=== PATIENT | female | born 1955 | race Caucasian/White ===

== ENCOUNTER 2020-10-20 08:31 | Outpatient (REF) | payer MEDICARE, SELFPAY ==
[2020-10-20 11:30] LABS: Hematocrit 42.7 % (37-47); Hemoglobin 13.4 g/dl (12.0-16.0); Mean Corpuscular HGB Conc 31.4 g/dl (31.0-35.0); Mean Corpuscular Hemoglobin 26.7 pg (27.0-33.0); Mean Corpuscular Volume 85.1 fL (80-98); Mean Platelet Volume 11.4 fL (9.4-12.3); Platelet Count 279 X10*3/uL (160-400); Red Blood Count 5.02 X10*6/uL (4.20-5.50); Red Cell Distribution Width 14.5 % (11.0-16.0)
[2020-10-20 11:52] LABS: Alanine Aminotransferase 20 U/L (0-31); Albumin Level 4.1 g/dL (3.5-5.0); Alkaline Phosphatase 86 U/L (39-117); Anion Gap 13 (12-20); Aspartate Amino Transferase 17 U/L (5-31); Bilirubin Total 0.3 mg/dL (0.0-1.0); Blood Urea Nitrogen 14 mg/dL (9-16); Calcium 9.2 mg/dL (8.4-10.2); Carbon Dioxide 26 mmol/L (22-29); Chloride 107 mmol/L (96-108); Cholesterol 177 mg/dL; Estimated Glomerular Filt Rate > 60; Glucose Fasting 106 mg/dL (60-99); HDL Cholesterol 42 mg/dL; LDL Cholesterol Calculated 102 mg/dl; Potassium 4.5 mmol/L (3.3-5.1); Sodium 141 mmol/L (135-145); Total Protein 6.5 g/dL (6.5-8.0); Triglycerides 166 mg/dL
[2020-10-20 11:55] LABS: Creatinine Urine 175.48 mg/dL; Microalbum/Creatinine Ratio Ur 23.3 ug/mg cr
[2020-10-20 11:55] LABS: TSH reflex Free T4 2.66 uIU/mL (0.32-4.0)
== END 2020-10-20 08:32 | disposition home or self-care (01) ==
LOC: HO.HMGCLDS 08:31
PROVIDERS: PCP Physician Assistant; Visit Provider Physician Assistant
DX: Z13.29 Encounter for screening for other suspected endocrine disorder (principal); Z13.220 Encounter for screening for lipoid disorders; I10 Essential (primary) hypertension
CPT/HCPCS: 36415; 80053; 80061; 82043; 84443; 85027

== ENCOUNTER 2021-06-17 07:57 | Outpatient (REF) | payer MEDICARE, SELFPAY ==
--- NOTE | ~2021-06-17 | MM_ITS ---
EXAMINATION: MM SCREENING DIGITAL BREAST TOMOSYNTHESIS, BILATERAL CLINICAL INFORMATION: Screening. Asymptomatic. The lifetime risk of breast cancer based on the Tyrer-Cuzick Model is 7%. COMPARISON: Mammography: 05/05/2019, 06/22/2017, 03/31/2016 TECHNIQUE: Digital breast tomosynthesis is performed in both the craniocaudal and mediolateral oblique views along with computer-aided detection (CAD). Synthesized 2D images are generated from the tomosynthesis. FINDINGS: There are scattered areas of fibroglandular density (ACR BI-RADS breast composition Category b). There are no significant masses, abnormal calcifications, or other abnormalities. There is a stable smooth nodular asymmetry anterior outer left breast and also posterior central right breast, both similar to prior exams. No developing density or significant changes. MM/MM tomosynthesis screening BI IMPRESSION: No mammographic evidence of malignancy. ASSESSMENT: BI-RADS 2: Benign RECOMMENDATION: Routine annual mammography screening. This patient's information was entered into a reminder system with a target due date for their next mammogram.
== END 2021-06-17 07:58 | disposition home or self-care (01) ==
LOC: HO.MAMMO 07:57
PROVIDERS: PCP Physician Assistant; Visit Provider Physician Assistant
DX: Z12.31 Encounter for screening mammogram for malignant neoplasm of breast (principal)
CPT/HCPCS: 77063; 77067

== ENCOUNTER 2021-11-11 09:06 | Outpatient (REF) | payer MEDICARE, SELFPAY ==
[2021-11-11 11:26] LABS: Estimated Average Glucose 123 mg/dL; Hemoglobin A1c % 5.9 %
[2021-11-11 11:37] LABS: Alanine Aminotransferase 18 U/L (0-31); Albumin Level 4.1 g/dL (3.5-5.0); Alkaline Phosphatase 68 U/L (39-117); Anion Gap 14 (12-20); Aspartate Amino Transferase 16 U/L (5-31); Bilirubin Total 0.5 mg/dL (0.0-1.0); Blood Urea Nitrogen 12 mg/dL (9-16); Calcium 9.1 mg/dL (8.4-10.2); Carbon Dioxide 29 mmol/L (22-29); Chloride 102 mmol/L (96-108); Cholesterol 185 mg/dL; Estimated Glomerular Filt Rate > 60; Glucose Fasting 111 mg/dL (60-99); HDL Cholesterol 41 mg/dL; LDL Cholesterol Calculated 90 mg/dl; Sodium 141 mmol/L (135-145); Total Protein 6.6 g/dL (6.5-8.0); Triglycerides 270 mg/dL
[2021-11-11 11:49] LABS: TSH reflex Free T4 2.28 uIU/mL (0.32-4.0)
[2021-11-11 12:14] LABS: Creatinine Urine 156.11 mg/dL; Microalbum/Creatinine Ratio Ur 44.8 ug/mg cr
== END 2021-11-11 09:07 | disposition home or self-care (01) ==
LOC: HO.HMGCLDS 09:06
PROVIDERS: PCP Physician Assistant; Visit Provider Physician Assistant
DX: Z13.29 Encounter for screening for other suspected endocrine disorder (principal); E66.01 Morbid (severe) obesity due to excess calories; Z68.42 Body mass index [BMI] 45.0-49.9, adult; I10 Essential (primary) hypertension
CPT/HCPCS: 36415; 80053; 80061; 82043; 83036; 84443

== ENCOUNTER → 2021-12-15 10:30 | Outpatient (REF) | payer MEDICARE, SELFPAY | LOC: HO.SL 10:30 | PROVIDERS: PCP Physician Assistant; Visit Provider Physician Assistant | DX: G47.33 Obstructive sleep apnea (adult) (pediatric) (principal) | CPT/HCPCS: 95806 ==

== ENCOUNTER → 2022-01-25 14:01 | Outpatient (BNVA) | payer MEDICARE, SELFPAY | PROVIDERS: PCP Physician Assistant; Visit Provider Internal Medicine | DX: G47.33 Obstructive sleep apnea (adult) (pediatric) (principal); R40.0 Somnolence; E66.01 Morbid (severe) obesity due to excess calories; Z68.41 Body mass index [BMI] 40.0-44.9, adult | CPT/HCPCS: 99202 ==

== ENCOUNTER → 2022-03-16 11:02 | Outpatient (BNVA) | payer MEDICARE, SELFPAY | PROVIDERS: PCP Physician Assistant; Visit Provider Internal Medicine | DX: G47.33 Obstructive sleep apnea (adult) (pediatric) (principal); R40.0 Somnolence; E66.01 Morbid (severe) obesity due to excess calories; Z68.41 Body mass index [BMI] 40.0-44.9, adult; Z99.89 Dependence on other enabling machines and devices | CPT/HCPCS: 99212 ==

== ENCOUNTER 2022-06-23 07:19 | Outpatient (REF) | payer MEDICARE, SELFPAY ==
--- NOTE | ~2022-06-23 | MM_ITS ---
EXAMINATION: MM SCREENING DIGITAL BREAST TOMOSYNTHESIS, BILATERAL CLINICAL INFORMATION: Screening. Asymptomatic. The lifetime risk of breast cancer based on the Tyrer-Cuzick Model is 6%. COMPARISON: Mammography: 06/17/2021, 05/05/2019, 06/22/2017 TECHNIQUE: Digital breast tomosynthesis is performed in both the craniocaudal and mediolateral oblique views along with computer-aided detection (CAD). Synthesized 2D images are generated from the tomosynthesis. FINDINGS: There are scattered areas of fibroglandular density (ACR BI-RADS breast composition Category b). There are no significant masses, abnormal calcifications, or other abnormalities. Parenchymal pattern is similar to prior studies. There is no developing density or architectural abnormality. There is a small stable nodular asymmetry mid upper outer left breast. The axilla and skin contours are unremarkable. No significant changes. MM/MM tomosynthesis screening BI IMPRESSION: No mammographic evidence of malignancy. ASSESSMENT: BI-RADS 2: Benign RECOMMENDATION: Routine annual mammography screening. This patient's information was entered into a reminder system with a target due date for their next mammogram.
== END 2022-06-23 07:20 | disposition home or self-care (01) ==
LOC: HO.MAMMO 07:19
PROVIDERS: PCP Physician Assistant; Visit Provider Physician Assistant
DX: Z12.31 Encounter for screening mammogram for malignant neoplasm of breast (principal)
CPT/HCPCS: 77063; 77067

== ENCOUNTER 2022-07-19 08:10 | Outpatient (REF) | payer MEDICARE, SELFPAY ==
[2022-07-19 11:40] LABS: Hematocrit 43.7 % (37.0-47.0); Hemoglobin 13.7 g/dl (12.0-16.0); Mean Corpuscular HGB Conc 31.4 g/dl (31.0-35.0); Mean Corpuscular Hemoglobin 26.1 pg (27.0-33.0); Mean Corpuscular Volume 83.4 fL (80.0-98.0); Platelet Count 259 X10*3/uL (160-400); Red Blood Count 5.24 X10*6/uL (4.20-5.50); Red Cell Distribution Width 14.7 % (11.0-16.0); White Blood Count 6.6 X10*3/uL (4.8-10.8)
[2022-07-19 11:54] LABS: Estimated Average Glucose 131 mg/dL; Hemoglobin A1c % 6.2 %
[2022-07-19 12:37] LABS: Creatinine Urine 176.05 mg/dL; Microalbum/Creatinine Ratio Ur 6.8 ug/mg cr
[2022-07-19 12:43] LABS: Alanine Aminotransferase 14 U/L (0-31); Albumin Level 3.9 g/dL (3.5-5.0); Alkaline Phosphatase 66 U/L (39-117); Anion Gap 10 (12-20); Aspartate Amino Transferase 15 U/L (5-31); Bilirubin Total 0.5 mg/dL (0.0-1.0); Blood Urea Nitrogen 17 mg/dL (9-16); Calcium 9.2 mg/dL (8.4-10.2); Carbon Dioxide 31 mmol/L (22-29); Chloride 104 mmol/L (96-108); Cholesterol 160 mg/dL; Estimated Glomerular Filt Rate > 60; Glucose Fasting 111 mg/dL (60-99); HDL Cholesterol 37 mg/dL; LDL Cholesterol Calculated 78 mg/dl; Potassium 4.3 mmol/L (3.3-5.1); Sodium 141 mmol/L (135-145); Total Protein 6.5 g/dL (6.5-8.0); Triglycerides 226 mg/dL
== END 2022-07-19 08:11 | disposition home or self-care (01) ==
LOC: HO.HMGCLDS 08:10
PROVIDERS: PCP Physician Assistant; Visit Provider Physician Assistant
DX: I10 Essential (primary) hypertension (principal); R73.01 Impaired fasting glucose; E78.2 Mixed hyperlipidemia
CPT/HCPCS: 36415; 80053; 80061; 82043; 83036; 85027

== ENCOUNTER 2022-07-27 08:30 | Outpatient (REF) | payer MEDICARE, SELFPAY ==
--- NOTE | ~2022-07-27 | XR_ITS ---
EXAMINATION: XR CHEST CLINICAL INFORMATION: Acute upper respiratory tract infection COMPARISON: Acute respiratory tract infection TECHNIQUE: 2 views of the chest were obtained. FINDINGS: The cardiac and mediastinal contours are normal. There may be lower lobe bronchial wall thickening. There is subsegmental atelectasis at the left lung base. The lungs are otherwise clear. No definite pneumonia. No pleural effusion or pneumothorax. Degenerative changes of the spine. XR/XR chest 2V IMPRESSION: Left lower lobe subsegmental atelectasis and question of lower lobe bronchial wall thickening. No definite pneumonia.
== END 2022-07-27 08:31 | disposition home or self-care (01) ==
LOC: HO.HMGCX 08:30
PROVIDERS: PCP Physician Assistant; Visit Provider Physician Assistant
DX: J06.9 Acute upper respiratory infection, unspecified (principal)
CPT/HCPCS: 71046

== ENCOUNTER 2022-08-03 09:10 | Outpatient (REF) | payer MEDICARE, SELFPAY ==
--- NOTE | ~2022-08-03 | XR_ITS ---
EXAMINATION: XR CHEST CLINICAL INFORMATION: Mild persistent asthma. COMPARISON: None available. TECHNIQUE: 2 views of the chest were obtained. FINDINGS: The lungs are well-expanded with platelike atelectasis in the lingula.. The rest of lungs are well-expanded and clear. Heart size and pulmonary vascularity is normal. No gross bony abnormality seen. XR/XR chest 2V IMPRESSION: Platelike atelectasis in the lingula.
== END 2022-08-03 09:11 | disposition home or self-care (01) ==
LOC: HO.HMGCLDS 09:10
PROVIDERS: PCP Physician Assistant; Visit Provider Physician Assistant
DX: J45.30 Mild persistent asthma, uncomplicated (principal)
CPT/HCPCS: 71046

== ENCOUNTER 2022-11-17 06:28 | Outpatient (REF) | payer MEDICARE, SELFPAY ==
[2022-11-17 12:02] LABS: Hematocrit 41.8 % (37.0-47.0); Hemoglobin 13.4 g/dl (12.0-16.0); Mean Corpuscular HGB Conc 32.1 g/dl (31.0-35.0); Mean Corpuscular Hemoglobin 27.4 pg (27.0-33.0); Mean Corpuscular Volume 85.5 fL (80.0-98.0); Platelet Count 300 X10*3/uL (160-400); Red Blood Count 4.89 X10*6/uL (4.20-5.50); Red Cell Distribution Width 14.7 % (11.0-16.0); White Blood Count 9.1 X10*3/uL (4.8-10.8)
[2022-11-17 12:11] LABS: Estimated Average Glucose 120 mg/dL; Hemoglobin A1c % 5.8 % (<6.0)
[2022-11-17 12:21] LABS: Alanine Aminotransferase 17 U/L (0-31); Alkaline Phosphatase 64 U/L (39-117); Anion Gap 13 (12-20); Aspartate Amino Transferase 16 U/L (5-31); Bilirubin Total 0.4 mg/dL (0.0-1.0); Blood Urea Nitrogen 12 mg/dL (9-16); Calcium 9.4 mg/dL (8.4-10.2); Carbon Dioxide 28 mmol/L (22-29); Chloride 105 mmol/L (96-108); Estimated Glomerular Filt Rate > 60; Glucose Fasting 104 mg/dL (60-99); Potassium 3.8 mmol/L (3.3-5.1); Sodium 142 mmol/L (135-145); Total Protein 6.7 g/dL (6.5-8.0)
== END 2022-11-17 06:29 | disposition home or self-care (01) ==
LOC: HO.HMGCLDS 06:28
PROVIDERS: PCP Physician Assistant; Visit Provider Physician Assistant
DX: I10 Essential (primary) hypertension (principal); R73.01 Impaired fasting glucose
CPT/HCPCS: 36415; 80053; 83036; 85027

== ENCOUNTER 2022-11-23 08:10 | Outpatient (AMB) | payer MEDICARE, SELFPAY ==
[2022-11-23 08:34] VITALS: BP 118/68; PULSE 83; O2SAT 98; BMI 43.1
--- NOTE | 2022-11-23 08:34 | A.OFFPC_ITS ---
Vital Signs 11/23/22 08:34 Height 5 ft 4 in Weight 251 lb 4 oz BMI 43.1 BP 118/68 Blood Pressure Location Lt brachial Position Sitting Pulse 83 Pulse Source Pulse Oximeter Pulse Oximetry (%) 98 Oxygen Delivery Method Room Air Intake Visit Reasons: f/u HTN/ Asthma/ HLD [employer] Product Tester: Not Required per policy Accompanied by: Self / Same As Patient Allergies acetaminophen [From Tylox] Allergy (Unknown, Verified 11/23/22 08:43) Rash lactose Allergy (Unknown, Verified 11/23/22 08:43) Stomach Upset oxycodone [From Tylox] Allergy (Unknown, Verified 11/23/22 08:43) Rash Medication List - Last Reconciled 11/23/22 by Gonzalez Cheema PA-C albuterol sulfate 90 mcg/actuation 2 puffs inhalation Q4-6H PRN atorvastatin 10 mg PO DAILY fluticasone propionate 50 mcg/actuation (Flonase Allergy Relief) 1 spray intranasal BID 30 days fluticasone propionate 100 mcg/actuation (Flovent Diskus) 1 inh inhalation Q12H 30 days hydrochlorothiazide 25 mg PO DAILY 90 days metoprolol tartrate 25 mg PO BID montelukast (Singulair) 10 mg PO DAILY 90 days Tobacco use date assessed: 05/14/22 Fall risk assessment: No Falls in past year Last assessed Fall Risk: 11/23/22 Dental Screening Dental Screen Date: 11/23/22 Did you have a dental visit in the last 12 months?: Yes Did you have a dental problem in the last 6 months where you did not have access to dental care?: No Was dental information given to patient?: Patient has dentist HPI f/u HTN/ Asthma/ HLD HPI Details Patient is a 67-year-old female here today for a follow-up visit. ? Patient has a past medical history significant obesity, hypertension, obstr uctive sleep apnea, hyperlipidemia. . : Obesity--> patient does understand her BMI is over 30. Has been able to lose weight since last visit. She does report not being as physically active as she has retired and spring. .. Obstructive sleep apnea: Has been found to have moderate to severe obstructive sleep apnea and was started on CPAP machine, has been unable to tolerate the CPAP mask due to feelings of more shortness of breath due to his use. Has tried new masks though still uncomfortable for her. Now followed by pulmonology. .. Hypertension:? Blood pressure acceptable today in office. Continues on metoprolol and hydrochlorothiazide. .. Impaired Glucose metabolism: Patient's most recent fasting blood sugar much improved and A1c also has improved. PLAN: We did discuss starting metformin though patient would like to hold off on continue working on lifestyle modifications [facility] Medical History Shortness of breath Somnolence, daytime Morbid obesity Surgical History History of umbilical hernia repair History of cholecystectomy History of tonsillectomy Family History Father Lung cancer Social History [facility]: [facility] Alcohol intake: never Patient Tobacco Use Status: Never used Tobacco e-Cigarette/Vaping Use: Never Used Second Hand Smoke Exposure: No service: No Current occupational status: retired Cognitive needs: No Hearing needs: No Vision needs: No Questionnaire PHQ-9 Over the last 2 weeks, how often have you been bothered by any of the following problems? 1. Little interest or pleasure in doing things: not at all 2. Feeling down, depressed, or hopeless: not at all 3. Trouble falling or staying asleep, or sleeping too much: not at all 4. Feeling tired or having little energy: not at all 5. Poor appetite or overeating: not at all 6. Feeling bad about yourself - or that you are a failure or have let yourself or your family down: not at all 7. Trouble concentrating on things, such as reading the newspaper or watching television: not at all 8. Moving or speaking so slowly that other people could have noticed. Or the opposite - being so fidgety or restless that you have been moving around a lot more than usual: not at all 9. Thoughts that you would be better off or of hurting yourself in some way: not at all Total score: 0 Depression Screening Interpretation: Negative [id number] - PHQ-9 Billing: Yes Source: Developed by Drs. Smith Bolden, Lita Reagan, Vitaliy Ba and colleagues, with an educational nj from [employer]. Thrive Questionnaire Date Thrive assessed: 07/21/22 AUDIT C Alcohol Use Questionnaire (AUDIT-C) 1. How often do you have a drink containing alcohol?: Never Total Score: 0 ERIC-7 AMB Questionnaire ERIC-7 Date ERIC - 7 assessed: 07/21/22 Source: Developed by Drs. Smith Bolden, Lita Reagan, Vitaliy Ba and colleagues, with an educational nj from [employer]. Review of Systems Const Denies headache(s) Eyes Denies loss of vision ENT Denies vertigo, Denies dizziness, Denies headache(s) and Denies sore throat Card Denies chest pain, Denies leg edema and Denies lightheadedness Resp Denies cough, Denies hemoptysis and Denies wheezing GI Denies abdominal pain, Denies melena, Denies constipation, Denies diarrhea and Denies vomiting Denies urinary frequency, Denies dysuria and Denies urinary urgency Musc Denies arthralgias, Denies joint swelling, Denies numbness and Denies tingling Neuro Denies Abnormal speech present, Denies behavioral changes, Denies vertigo, Denies dizziness, Denies headache(s), Denies loss of vision, Denies memory loss, Denies numbness and Denies tingling Psych Denies anxiety, Denies behavioral changes, Denies depression, Denies memory loss and Denies panic attacks Anatoliy/Lymph Denies easy bleeding and Denies easy bruising Aller/Immun Denies wheezing Physical exam (Primary Care) Vital Signs: Last Vital Signs Pulse 83 11/23/22 08:34 BP 118/68 11/23/22 08:34 Pulse Ox 98 11/23/22 08:34 Oxygen Delivery Method Room Air 11/23/22 08:34 BMI result Body Mass Index 43.1 Tobacco/Smoking Status: Tobacco use Status Tobacco use date assessed 05/14/22 11/23/22 08:41 Patient Tobacco Use Status Never used Tobacco 11/23/22 08:41 Tobacco use type 07/21/22 08:29 e-Cigarette/Vaping Use Never Used 11/23/22 08:41 PHQ-9: PHQ-9 Score PHQ-9: Total score 0 11/23/22 08:41 Depression Screening Interpretation: Negative Thrive Assessment: Date of Thrive Assessment Date Thrive assessed 07/21/22 11/23/22 08:41 Const General: healthy appearing, no acute distress, alert and awake Nutritional Appearance: well nourished Orientation/consciousness: oriented to person, oriented to place and oriented to time HENMT Ears: TM's normal bilaterally General nose exam: Normal nasal mucous membranes and turbinates present Eyes Conjunctivae: conjunctivae normal Sclerae: sclerae normal Pupils: Equal, round and reactive pupils present Neck Neck: Yes no lymphadenopathy and Yes no JVD Thyroid: Thyroid normal Carotids: no bruits Resp Effort & Inspection: normal respiratory effort and not tachypneic Auscultation: no crackles, no rales, no rhonchi and no wheezes Cardio Rate: regular rate Rhythm: regular rhythm Heart sounds: no murmurs and normal S1 and S2 GI Palpation (GI): Soft to palpation, nontender, no hepatomegaly and no splenome silvia Auscultation: normal bowel sounds Skin General skin exam: no rashes or lesions noted and dry skin Neuro General: oriented to person, oriented to place and oriented to time Cranial nerves: Yes Equal, round and reactive pupils present Speech: No Abnormal speech present Gait exam (Neuro): Normal gait present Motor exam (neuro): no tremor noted Extrem Right upper extremity: full ROM Left upper extremity: full ROM Right lower extremity: full ROM; no edema Left lower extremity: full ROM; no edema Psych Mental Status: mental status grossly normal Speech and movement: Normal speech and movement present Affect: normal affect Attitude: cooperative Thought process: Normal thought process present Assessment and Plan Assessment & Plan (1) Asthma: Code(s): J45.909 - Unspecified asthma, uncomplicated Qualifiers: Asthma severity: mild Asthma persistence: persistent Asthma complication type: uncomplicated Qualified Code(s): J45.30 - Mild persistent asthma, uncomplicated Plan: Patient reports her asthma has been much better since she has been off of CPAP machine at night. She believes the CPAP machine was causing her to have pulmonary issues. (2) Obese: Code(s): E66.9 - Obesity, unspecified Qualifiers: Obesity type: due to excess calories Obesity classification: adult class 3 (BMI >= 40) Serious obesity comorbidity presence: with serious comorbidity Body mass index: BMI 45.0-49.9 Qualified Code(s): E66.01 - Morbid (severe) obesity due to excess calories; Z68.42 - Body mass index [BMI] 45.0- 49.9, adult Plan: Patient does understand her BMI is over 40 will continue working on being more physically active and adapting to better eating habits to reduce her weight. (3) HTN (hypertension): Code(s): I10 - Essential (primary) hypertension Qualifiers: Hypertension type: primary hypertension Qualified Code(s): I10 - Essential (primary) hypertension Plan: Patient's blood pressure acceptable today in office. Will continue her current dose of metoprolol and hydrochlorothiazide with goal blood pressure remained below 140/90 (4) Impaired fasting glucose: Code(s): R73.01 - Impaired fasting glucose Plan: Patient's most recent fasting blood sugar improved. A1c still in prediabetic range. Will continue lifestyle modifications to reduce high carbohydrate foods in her diet. (5) URBANO (obstructive sleep apnea): Comment: MODERATELY SEVERE OBSTRUCTIVE SLEEP APNEA, WITH TOTAL SLEEP TIME AHI 18.7. CPAP WITH AUTO PAP MODE AND PRESSURE SETTING OF 6 TO 16 CM . SHE GOT HER CPAP DEVICE IN THE WEEK OF FEBRUARY, USE FOR 1 WEEK REGULARLY, THEN SHE HAD GONE FOR 2 WEEKS VACATION AND DID NOT CARRY THE CPAP WITH HER . NOW SHE PLANS TO USE IT REGULARLY AND SEEMS TO BE WELL MOTIVATED. SHE EXPLAINED ABOUT THE PROPER USE OF CPAP DEVICE. ADVISE THAT SHE SHOULD USE DISTILLED WATER IN THE WATER TANK AND USE THE HUMIDITY AT LEVEL 4,TO REDUCE THE DRYNESS. Code(s): G47.33 - Obstructive sleep apnea (adult) (pediatric) Plan: As per HPI patient does have moderate obstructive sleep apnea. Has not been unable to tolerate CPAP mask or nasal pillow. Like to hold off on obstructive sleep apnea treatment (6) HLD (hyperlipidemia): Code(s): E78.5 - Hyperlipidemia, unspecified Qualifiers: Hyperlipidemia type: mixed hyperlipidemia Qualified Code(s): E78.2 - Mixed hyperlipidemia Plan: Patient continues on statin therapy, most recent lipid panel showing appropriate total cholesterol and LDL. Goal LDL to remain below 160 Orders: Orders Microalbumin, Random (w Creat) 6 Months I10 - Essential (primary) hypertension Comprehensive [place]. Panel Fast 6 Months I10 - Essential (primary) hypertension Lipid Panel 6 Months E78.2 - Mixed hyperlipidemia Complete Blood Count no Diff 6 Months J45.30 - Mild persistent asthma, uncomplicated Coding Level of Care Code Est Pt Level 4 (08562) Diagnoses Mild persistent asthma without complication J45.30 Asthma severity: mild Asthma persistence: persistent Asthma complication type: uncomplicated Class 3 severe obesity due to excess calories with serious comorbidity and body mass index (BMI) of 45.0 to 49.9 in adult E66.01; Z68.42 Obesity type: due to excess calories Obesity classification: adult class 3 (BMI >= 40) Serious obesity comorbidity presence: with serious comorbidity Body mass index: BMI 45.0-49.9 Primary hypertension I10 Hypertension type: primary hypertension Impaired fasting glucose R73.01 URBANO (obstructive sleep apnea) G47.33 Mixed hyperlipidemia E78.2 Hyperlipidemia type: mixed hyperlipidemia
== END 2022-11-23 09:03 | disposition home or self-care (01) ==
PROVIDERS: PCP Physician Assistant; Visit Provider Physician Assistant
DX: J45.30 Mild persistent asthma, uncomplicated (principal); E66.01 Morbid (severe) obesity due to excess calories; Z68.42 Body mass index [BMI] 45.0-49.9, adult; I10 Essential (primary) hypertension; R73.01 Impaired fasting glucose; G47.33 Obstructive sleep apnea (adult) (pediatric); E78.2 Mixed hyperlipidemia
CPT/HCPCS: 99214

== ENCOUNTER 2023-05-16 07:53 | Outpatient (REF) | payer MEDICARE, SELFPAY ==
[2023-05-16 11:26] LABS: Hematocrit 42.6 % (37.0-47.0); Hemoglobin 13.5 g/dl (12.0-16.0); Mean Corpuscular HGB Conc 31.7 g/dl (31.0-35.0); Mean Corpuscular Hemoglobin 26.8 pg (27.0-33.0); Mean Corpuscular Volume 84.7 fL (80.0-98.0); Mean Platelet Volume 11.3 fL (9.4-12.3); Platelet Count 304 X10*3/uL (160-400); Red Blood Count 5.03 X10*6/uL (4.20-5.50); Red Cell Distribution Width 14.6 % (11.0-16.0); White Blood Count 9.5 X10*3/uL (4.8-10.8)
[2023-05-16 12:21] LABS: Alanine Aminotransferase 15 U/L (0-31); Albumin Level 3.9 g/dL (3.5-5.0); Alkaline Phosphatase 70 U/L (39-117); Anion Gap 12 (12-20); Aspartate Amino Transferase 15 U/L (5-31); Bilirubin Total 0.4 mg/dL (0.0-1.0); Blood Urea Nitrogen 14 mg/dL (9-16); Calcium 9.2 mg/dL (8.4-10.2); Carbon Dioxide 30 mmol/L (22-29); Chloride 104 mmol/L (96-108); Cholesterol 183 mg/dL (<200); Estimated Glomerular Filt Rate > 60; Glucose Fasting 103 mg/dL (60-99); HDL Cholesterol 42 mg/dL (>40); LDL Cholesterol Calculated 89 mg/dL (<100); Potassium 3.9 mmol/L (3.3-5.1); Sodium 142 mmol/L (135-145); Total Protein 6.8 g/dL (6.5-8.0); Triglycerides 263 mg/dL (<150)
== END 2023-05-16 07:54 | disposition home or self-care (01) ==
LOC: HO.HMGCLDS 07:53
PROVIDERS: PCP Physician Assistant; Visit Provider Physician Assistant
DX: E78.2 Mixed hyperlipidemia (principal); I10 Essential (primary) hypertension; J45.30 Mild persistent asthma, uncomplicated
CPT/HCPCS: 36415; 80053; 80061; 85027

== ENCOUNTER 2023-05-17 09:05 | Outpatient (REF) | payer MEDICARE, SELFPAY ==
[2023-05-17 12:43] LABS: Creatinine Urine 28.61 mg/dL; Microalbumin Urine < 5.0 mg/L
== END 2023-05-17 09:06 | disposition home or self-care (01) ==
LOC: HO.HMGCLNP 09:05
PROVIDERS: PCP Physician Assistant; Visit Provider Physician Assistant
DX: I10 Essential (primary) hypertension (principal)
CPT/HCPCS: 82043; 82570

== ENCOUNTER 2023-05-24 08:51 | Outpatient (AMB) | payer MEDICARE, SELFPAY ==
--- NOTE | 2023-05-24 09:09 | A.OFFVIS_ITS ---
Intake Vital Signs 05/24/23 09:10 Height 5 ft 4 in Weight 264 lb 2 oz BMI 45.3 BP 152/84 H Blood Pressure Location Lt brachial Position Sitting Pulse 94 Pulse Source Pulse Oximeter Pulse Oximetry (%) 96 Oxygen Delivery Method Room Air Intake Visit Reasons: AWV G0438 Intake Note: Patient is here for an Annual Wellness Visit. Ecd Required: No Accompanied by: Self / Same As Patient Allergies acetaminophen [From Tylox] Allergy (Unknown, Verified 05/24/23 09:23) Rash lactose Allergy (Unknown, Verified 05/24/23 09:23) Stomach Upset oxycodone [From Tylox] Allergy (Unknown, Verified 05/24/23 09:23) Rash Medication List - Last Reconciled 05/24/23 by Gonzalez Cheema PA-C albuterol sulfate 90 mcg/actuation 2 puffs inhalation Q4-6H PRN atorvastatin 10 mg PO DAILY fluticasone propionate 100 mcg/actuation (Flovent Diskus) 1 inh inhalation Q12H 30 days fluticasone propionate 50 mcg/actuation (Flonase Allergy Relief) 1 spray intranasal BID 30 days hydrochlorothiazide 25 mg PO DAILY 90 days metoprolol tartrate 25 mg PO BID montelukast (Singulair) 10 mg PO DAILY 90 days HPI AWV G0438 HPI Details Patient is a 68-year-old female here today for annual wellness visit. Patient has a past medical history significant for obesity, asthma, obstructive sleep apnea,. Glucose metabolism and hypertension. Today we discussed her [place] of care and end of life planning, given a MOLST form to go over with her healthcare proxy. Concern--> has noted a skin lesion over left side of abdomen that is raised and rough texture. Mammogram: Has upcoming appointment for mammogram Bone density screening: Done in 2019 that did show osteopenia, would like a repeat bone density Laboratory Tests 07/19/22 05/16/23 05/16/23 08:20 07:58 07:58 Fasting Glucose 103 H Triglycerides 263 H Cholesterol 160 183 LDL Cholesterol, C alc 89 HPI Comments History of Present Illness Details reviewed past medical history- yes reviewed surgical / hospitalization history- yes reviewed current medications- yes reviewed family history- yes home safety throw rugs? grab bars? raised toilet seat? working smoke detectors? activities of daily living difficulty bathing or showering? difficulty dressing? difficulty using the toilet? difficulty getting in and out of bed? difficulty walking? receives help from other person's with any of the above tasks? instrumental activities of daily living uses telephone - gets to place out of walking distance- go shopping for groceries- repairs own meals- does own minor home maintenance- does own laundry- does own housework- manages own money- currently takes medication- end of life planning discussed advanced directives- yes advanced directives on file? discussed wishes expressed in advanced directives. fall risk have you had any falls with injuries in the past year? have you had 2 or more falls in the past year? fall risk assessment: [facility] Medical History Shortness of breath Somnolence, daytime Morbid obesity Surgical History History of umbilical hernia repair History of cholecystectomy History of tonsillectomy Family History Father Lung cancer Social History Housing: Condominium Alcohol intake: never Patient Tobacco Use Status: Never used Tobacco e-Cigarette/Vaping Use: Never Used Second Hand Smoke Exposure: No service: No Current occupational status: retired Cognitive needs: No Hearing needs: No Vision needs: No Questionnaire Medicare Wellness Checkup [age] What gender do you identify with?: female During the past 4 weeks, how much have you been bothered by emotional problems such as feeling anxious, depressed, irritable, sad or downhearted, and blue?: not at all During the past 4 weeks, has your physical & emotional health limited your social activities with family, friends, neighbors, or groups?: not at all During the past 4 weeks, how much bodily pain have you generally had?: no pain During the past 4 weeks, was someone available to help you if you needed & wanted help?: yes, quite a bit During the past 4 weeks, what was the hardest physical activity you could do for at least 2 minutes?: moderate Can you get to places out of walking distance without help? (For eg., can you travel alone on buses, taxis or drive your car?): Yes Can you go shopping for groceries or clothes without someone's help?: Yes Can you prepare your own meals?: Yes Can you do your housework without help?: Yes Because of any health problems, do you need the help of another person with your personal care needs such as eating, bathing, dressing or getting around the house?: No Can you handle your own money without help?: Yes During the past 4 weeks, how would you rate your health in general?: good During the past 4 weeks how have things been going for you?: pretty well Are you having difficulties driving your car?: no Do you always fasten your seat belt when you are in a car?: yes, usually During past 4 weeks, have you been bothered by the following: never: Falling or dizzy when standing up, Sexual problems?, Trouble eating well? and Problems using the telephone?, sometimes: Teeth or denture problems? and often: Tiredness or fatigue? Have you fallen 2 or more times in the past year?: No Are you afraid of falling?: No Are you a smoker?: no During the past 4 weeks, how many drinks of wine, beer, or other alcoholic beverages did you have?: no alcohol at all Do you exercise for about 20 minutes 3 or more times a week?: no, I usually do not exercise this much Have you been given information to help with the following?: no: Hazards in your house that might hurt you? and no: Keeping track of your medications? How often do you have trouble taking medicines the way you have been told to take them?: I always take medicine as prescribed How confident are you that you can control & manage most of your health problems?: somewhat confident What is your race?: White Mini Mental State Exam (MMSE) Orientation What is the (year) (season) (date) (day) (month)?: year and season Where are we (state) (county) (town or city) (hospital) (floor)?: town or city Attention & Calculation (CHOOSE ONE) Ask pt to begin with 100 & count backward by 7. Stop after 5 repeats. If pt cannot ask them to spell the word WORLD backward.: 93, 86 and 79 Spell WORLD backwards (DLROW): 5 letters Score Score: 11 Activity of Daily Living Bathing - sponge bath, tub bath or shower: receives no assistance (gets in/out by self, if usual bathing means Dressing - getting clothes from closets & drawers, including inner/outer garments & fasteners.: gets clothes & gets completely dressed without help Toileting - going to the 'toilet room' for urine/bowel elimination & cleaning self/arranging clothes: goes to toilet room, cleans self, arranges clothes without help Transfer: moves in & out of bed and chair without help (may use support object) Continence: controls urination/bowel movements completely by self Feeding: feeds self without help Total Score: 0 Information obtained from: patient Using telephone: independent Traveling: independent Shopping: independent Preparing meals: independent Housework: independent Taking medicine: independent Managing money: independent PHQ-9 Over the last 2 weeks, how often have you been bothered by any of the following problems? 1. Little interest or pleasure in doing things: not at all 2. Feeling down, depressed, or hopeless: not at all 3. Trouble falling or staying asleep, or sleeping too much: not at all 4. Feeling tired or having little energy: not at all 5. Poor appetite or overeating: not at all 6. Feeling bad about yourself - or that you are a failure or have let yourself or your family down: not at all 7. Trouble concentrating on things, such as reading the newspaper or watching television: not at all 8. Moving or speaking so slowly that other people could have noticed. Or the opposite - being so fidgety or restless that you have been moving around a lot more than usual: not at all 9. Thoughts that you would be better off or of hurting yourself in some way: not at all Total score: 0 Depression Screening Interpretation: Negative Depression Screening Done: Yes 45670 - PHQ-9 Billing: Yes Source: Developed by Drs. Smith Bolden, Lita Reagan, Vitaliy Ba and colleagues, with an educational nj from [employer]. Thrive Questionnaire Date Thrive assessed: 05/24/23 I am a: Patient What is your living situation today?: I have a steady place to live Within the past 12 months, did the food you bought not last and you didn't have the money to get more?: Never true Within the past 12 months, did you worry whether your food would run out before you got money to buy more?: Never true Do you have trouble paying for medicines?: No Do you have trouble getting transportation to medical appointments?: No Do you have trouble paying your heating and electricity bill?: No Do you have trouble taking care of your child, family member or friend?: No Do you have trouble with day-to-day activities such as bathing, preparing meals, shopping, managing finances, etc.?: No Are you currently unemployed and looking for a job?: No Are you interested in more education?: No Please select the resources that you would like help with: None Currently or been in a relationship where the following occur: no concerns reported THRIVE Score: 0 Physical Exam Vital Signs: Last Vital Signs Pulse 94 05/24/23 09:10 BP 152/84 H 05/24/23 09:10 Pulse Ox 96 05/24/23 09:10 Oxygen Delivery Method Room Air 05/24/23 09:10 BMI result Body Mass Index 45.3 HEENT Other: hearing screening whisper test- pass Eyes Other: vision screening- 20/20 OS/OD/ OU Other: urinary incontinence? no Neuro Other: balance Romberg- normal tandem walk test- able walk-in turned test- able rise from sit to stand- within 2 seconds Assessment & Plan Assessment & Plan (1) Medicare annual wellness visit, initial: Code(s): Z00.00 - Encounter for general adult medical examination without abnormal findings (2) Post-menopausal: Code(s): Z78.0 - Asymptomatic menopausal state Plan: Has a history of osteopenia found on bone density in 2020. Willing to get repeat bone density screening. (3) Skin lesion: Code(s): L98.9 - Disorder of the skin and subcutaneous tissue, unspecified Plan: Has concerning skin lesion over left abdomen, will refer to dermatology for evaluation Plan AWV done today Patient received MOLST form Orders: Orders XR DEXA axial skeleton Today Z78.0 - Asymptomatic menopausal state Hemoglobin A1c Today R73.01 - Impaired fasting glucose Comprehensive [place]. Panel Fast Today R73.01 - Impaired fasting glucose Lipid Panel Today E78.2 - Mixed hyperlipidemia Complete Blood Count no Diff Today I10 - Essential (primary) hypertension Referrals Dermatology Referral L98.9 - Disorder of the skin and subcutaneous tissue, unspecified Medications: Refilled atorvastatin 10 mg PO DAILY 90 tabs 1RF E78.2 - Mixed hyperlipidemia metoprolol tartrate 25 mg PO BID 180 tabs 1RF I10 - Essential (primary) hypertension montelukast (Singulair) 10 mg PO DAILY 90 days 90 tabs 1RF J30.1 - Allergic rhinitis due to pollen fluticasone propionate 50 mcg/actuation (Flonase Allergy Relief) administer into each nostril 1 spray intranasal BID 30 days 16 grams 3RF J30.1 - Allergic rhinitis due to pollen Quality Reporting (2019) Depression/Bipolar (159/160/161/177) PHQ-9: Total score: 0 Coding Level of Care Code Medicare First (G0438) Est Pt Level 3 (67380) Diagnoses Medicare annual wellness visit, initial Z00.00 Post-menopausal Z78.0 Skin lesion L98.9 CPT Codes Advance Care Planning - Time spent: 1-15 minutes, not on file ([id number]) Advance Care Planning Advance Care Planning discussion: Exists, not on file Date of discussion: 05/24/23 Forms completed: MOLST Time spent: 1-15 minutes, not on file Actual minutes spent: 4
[2023-05-24 09:10] VITALS: BP 152/84; PULSE 94; O2SAT 96; BMI 45.3
== END 2023-05-24 09:59 | disposition home or self-care (01) ==
PROVIDERS: PCP Physician Assistant; Visit Provider Physician Assistant
DX: Z00.00 Encounter for general adult medical examination without abnormal findings (principal); Z78.0 Asymptomatic menopausal state; L98.9 Disorder of the skin and subcutaneous tissue, unspecified; E66.01 Morbid (severe) obesity due to excess calories; Z68.42 Body mass index [BMI] 45.0-49.9, adult
CPT/HCPCS: 1124F; 99213; G0438

== ENCOUNTER 2023-06-14 08:06 | Outpatient (REF) | payer MEDICARE, SELFPAY ==
--- NOTE | ~2023-06-14 | MM_ITS ---
EXAMINATION: BONE DENSITOMETRY CLINICAL INDICATION: Menopause. COMPARISON: Baseline BD dated 05/08/2019. TECHNIQUE: Using a [employer] DXA System (software version: 13.1) manufactured by [employer], dual-energy x-ray absorptiometry was performed of the lumbar spine and left hip. The images are of good technical quality. Summary results are attached. FINDINGS: LEFT FEMUR, NECK: Current: BMD 0.821 g/cm2, Z-score -0.6, T-score -1.6, osteopenia. Baseline: BMD 0.855 g/cm2. LEFT FEMUR, TOTAL: Current: BMD 0.995 g/cm2, Z-score 0.5, T-score -0.1, normal, 5.9% increase from baseline (<5% change is not significant). Baseline: BMD 0.940 g/cm2. AP SPINE L1-L4: Current: BMD 1.259 g/cm2, Z-score 1.2, T-score 0.7, normal, 4.6% increase from baseline (<5% change is not significant). Baseline: BMD 1.204 g/cm2. IDENTIFIED RISK FACTORS: Menopause, thiazide. HISTORY OF FRACTURE: None listed. MEDICATIONS: Calcium, vitamin D. MM/XR DEXA axial skeleton IMPRESSION: 1. DIAGNOSIS: Osteopenia based on the lowest T-score value of -1.6 in the femoral neck applying World Health Organization criteria. 2. 10-YEAR FRACTURE RISK PREDICTION, FRAX: Major osteoporotic fracture (clinical spine, forearm, hip or shoulder) 8.6%. Hip fracture 1.2%. 3. Treatment Recommendations: NOF guidelines recommend consideration for treatment in postmenopausal women and men age 50 and older presenting with the following: -A hip or vertebral (clinical or morphometric) fracture. -T-score less than or equal to -2.5 at the femoral neck or spine after appropriate evaluation to exclude secondary causes. -Low bone mass at the hip or spine and a 10-year fracture probability by FRAX of greater than or equal to 3% for hip fracture or greater than or equal to 20% for major osteoporotic fracture based on the [place] adapted WHO algorithm. 4. Other Recommendations: All treatment decisions require clinical judgment and consideration of individual patient factors, including patient preferences, comorbidities, previous drug use, risk factors not captured in the FRAX model (e.g. frailty, falls, vitamin D deficiency, increased bone turnover, interval significant decline in bone density) and possible under or overestimation of fracture risk by FRAX. Additional medical evaluation for secondary cause of low bone mineral density may be appropriate. FUTURE SCAN RECOMMENDATION: People with diagnosed cases of osteoporosis or at high risk for fracture should have regular bone mineral density tests. For patients eligible for Medicare, routine testing is allowed once every 2 years. The testing frequency can be increased to one year for patients who have rapidly progressing disease, those who are receiving or discontinuing medical therapy to restore bone mass, or have additional risk factors.
== END 2023-06-14 08:07 | disposition home or self-care (01) ==
LOC: HO.MAMMO 08:06
PROVIDERS: PCP Physician Assistant; Visit Provider Physician Assistant
DX: Z13.820 Encounter for screening for osteoporosis (principal); Z78.0 Asymptomatic menopausal state
CPT/HCPCS: 77080

== ENCOUNTER 2023-10-12 10:03 | Outpatient (REF) | payer MEDICARE, SELFPAY ==
--- NOTE | ~2023-10-12 | XR_ITS ---
EXAMINATION: XR HIP, RIGHT CLINICAL INFORMATION: Pain in right hip. COMPARISON: None available. TECHNIQUE: 2 views of the right hip. FINDINGS: Diffuse demineralization. Limited visualization due to body habitus. Moderate degenerative changes in the right hip with joint space narrowing and hypertrophic change. Degenerative changes on limited views of the inferior aspect of the right sacroiliac joint. XR/XR hip RT min 2V IMPRESSION: 1. Moderate degenerative changes in the right hip. 2. Diffuse demineralization. Substantially limited visualization due to body habitus. Dedicated imaging with CT scan is recommended if there is clinical concern for fracture or other underlying pathology. This study was presented today October 19, 2023 for interpretation. Stat results provided at this time as requested by referring provider.
== END 2023-10-12 10:04 | disposition home or self-care (01) ==
LOC: HO.HMGCX 10:03
PROVIDERS: PCP Physician Assistant; Visit Provider Physician Assistant
DX: M25.551 Pain in right hip (principal)
CPT/HCPCS: 73502

== ENCOUNTER 2023-11-03 12:10 | Outpatient (AMB) | payer MEDICARE, SELFPAY ==
[2023-11-03 12:20] VITALS: BMI 45.3
--- NOTE | 2023-11-03 12:20 | A.OFFVIS_ITS ---
Vital Signs 11/03/23 12:20 Height 5 ft 4 in Weight 264 lb BMI 45.3 Intake Visit Reasons: New Pt - Right Hip Pain Intake Note: Lorenzo is a 68 year old female who presents today for a new patient visit with complaints of right hip pain. Patient reports that she has had ongoing right hip pain for a few months. Pain is felt in the lateral aspect and the groin. She reports that she took a fall in june but this mostly impacted the right knee, she is unsure if this is why the hip pain onset. She has pain mostly with walking, standing and stairs. Occasionally she will get a sharp pain and feels like the leg is going to give out. Denies of numbness and tingling. Allergies acetaminophen [From Tylox] Allergy (Unknown, Verified 05/24/23 09:23) Rash lactose Allergy (Unknown, Verified 05/24/23 09:23) Stomach Upset oxycodone [From Tylox] Allergy (Unknown, Verified 05/24/23 09:23) Rash HPI HPI New Pt - Right Hip Pain: Details: Lorenzo is a 68 year old female who presents today for a new patient visit with complaints of right hip pain. Patient reports that she has had ongoing right hip pain for a few months. Pain is felt in the lateral aspect and the groin. She reports that she took a fall in june but this mostly impacted the right knee, she is unsure if this is why the hip pain onset. She has pain mostly with walking, standing and stairs. Occasionally she will get a sharp pain and feels like the leg is going to give out. Denies of numbness and tingling. [facility] Medical History Shortness of breath Somnolence, daytime Morbid obesity Surgical History History of umbilical hernia repair History of cholecystectomy History of tonsillectomy Family History Father Lung cancer Social History Housing: Condominium Alcohol intake: never Patient Tobacco Use Status: Never used Tobacco e-Cigarette/Vaping Use: Never Used Second Hand Smoke Exposure: No service: No Current occupational status: retired Cognitive needs: No Hearing needs: No Vision needs: No Physical Exam Vital Signs: BMI result Body Mass Index 45.3 Extrem Other: + Tendelenberg +gait antalgia +Impingement Results Reviewed Results Reviewed: mild-moderate right hip OA Assessment & Plan Assessment & Plan (1) Osteoarthritis of right hip: Code(s): M16.11 - Unilateral primary osteoarthritis, right hip Category: Medical Plan: Right hip OA that is mild-moderate. DIscussed injections, PT and surgery. I recommend PT. (2) Morbid obesity: Code(s): E66.01 - Morbid (severe) obesity due to excess calories Category: Medical Plan: PT Coding Level of Care Code New Pt Level 3 (09076) Complex EM visit Add On G2211 Diagnoses Osteoarthritis of right hip M16.11 Morbid obesity E66.01
== END 2023-11-03 16:47 ==
PROVIDERS: PCP Physician Assistant; Visit Provider Orthopaedic Surgery
DX: M16.11 Unilateral primary osteoarthritis, right hip (principal); E66.01 Morbid (severe) obesity due to excess calories
CPT/HCPCS: 99203; G2211

== ENCOUNTER → 2023-11-03 12:10 | Outpatient (BNVA) | payer MEDICARE, SELFPAY | PROVIDERS: PCP Physician Assistant; Visit Provider Orthopaedic Surgery | DX: M16.11 Unilateral primary osteoarthritis, right hip (principal); E66.01 Morbid (severe) obesity due to excess calories; Z68.42 Body mass index [BMI] 45.0-49.9, adult | CPT/HCPCS: 99202 ==

== ENCOUNTER 2023-11-04 08:08 | Outpatient (REF) | payer MEDICARE, SELFPAY ==
--- NOTE | ~2023-11-04 | MM_ITS ---
EXAMINATION: MM SCREENING DIGITAL BREAST TOMOSYNTHESIS, BILATERAL CLINICAL INFORMATION: Screening. Asymptomatic. COMPARISON: Mammography: This study is compared with prior exams dating back to 2019. TECHNIQUE: Digital breast tomosynthesis is performed in both the craniocaudal and mediolateral oblique views along with computer-aided detection (CAD). Synthesized 2D images are generated from the tomosynthesis. FINDINGS: There are scattered areas of fibroglandular density (ACR BI-RADS breast composition Category b). There are no significant masses, abnormal calcifications, or other abnormalities. MM/MM tomosynthesis screening BI IMPRESSION: No mammographic evidence of malignancy. ASSESSMENT: BI-RADS BI-RADS 1 - Negative RECOMMENDATION: Routine annual mammography screening. 1 year F/U This examination should not preclude the clinical evaluation of a suspicious palpable abnormality. This patient's information was entered into a reminder system with a target due date for their next mammogram. Electronically signed by: Melva Gordon MD 12/01/2023 07:42 PM EDT
== END 2023-11-04 08:09 | disposition home or self-care (01) ==
LOC: HO.MAMMO 08:08
PROVIDERS: PCP Physician Assistant; Visit Provider Physician Assistant
DX: Z12.31 Encounter for screening mammogram for malignant neoplasm of breast (principal)
CPT/HCPCS: 77063; 77067

== ENCOUNTER → 2023-11-04 08:15 | Outpatient (BNV) | payer MEDICARE, SELFPAY | PROVIDERS: PCP Physician Assistant; Visit Provider Radiology Diagnostic Radiology | DX: Z12.31 Encounter for screening mammogram for malignant neoplasm of breast (principal) | CPT/HCPCS: 77063; 77067 ==

== ENCOUNTER 2023-11-15 09:08 | Outpatient (REF) | payer MEDICARE, SELFPAY ==
[2023-11-15 10:13] LABS: Hematocrit 43.5 % (37.0-47.0); Hemoglobin 13.7 g/dl (12.0-16.0); Mean Corpuscular HGB Conc 31.5 g/dl (31.0-35.0); Mean Corpuscular Volume 85.6 fL (80.0-98.0); Mean Platelet Volume 11.5 fL (9.4-12.3); Platelet Count 307 X10*3/uL (160-400); Red Blood Count 5.08 X10*6/uL (4.20-5.50); Red Cell Distribution Width 14.6 % (11.0-16.0); White Blood Count 9.1 X10*3/uL (4.8-10.8)
[2023-11-15 10:30] LABS: Estimated Average Glucose 123 mg/dL; Hemoglobin A1C 152.3804 umol/L; Hemoglobin A1c % 5.9 % (<6.0)
[2023-11-15 10:39] LABS: Alanine Aminotransferase 21 U/L (0-31); Alkaline Phosphatase 73 U/L (39-117); Anion Gap 15 (12-20); Aspartate Amino Transferase 12 U/L (5-31); Bilirubin Total 0.3 mg/dL (0.0-1.0); Blood Urea Nitrogen 14 mg/dL (9-16); Carbon Dioxide 28 mmol/L (22-29); Chloride 105 mmol/L (96-108); Cholesterol 159 mg/dL (<200); Estimated Glomerular Filt Rate > 60; Glucose Fasting 116 mg/dL (60-99); HDL Cholesterol 38 mg/dL (>40); LDL Cholesterol Calculated 72 mg/dL (<100); Potassium 4.5 mmol/L (3.3-5.1); Sodium 143 mmol/L (135-145); Total Protein 6.9 g/dL (6.5-8.0); Triglycerides 248 mg/dL (<150)
== END 2023-11-15 09:09 | disposition home or self-care (01) ==
LOC: HO.HMGCLDS 09:08
PROVIDERS: PCP Physician Assistant; Visit Provider Physician Assistant
DX: R73.01 Impaired fasting glucose (principal); I10 Essential (primary) hypertension; E78.2 Mixed hyperlipidemia
CPT/HCPCS: 36415; 80053; 80061; 83036; 85027

== ENCOUNTER 2023-11-24 08:12 | Outpatient (AMB) | payer MEDICARE, SELFPAY ==
--- NOTE | 2023-11-24 08:15 | A.OFFPC_ITS ---
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 Accompanied by: Self / Same As Patient Allergies acetaminophen [From Tylox] Allergy (Unknown, Verified 11/24/23 08:28) Rash lactose Allergy (Unknown, Verified 11/24/23 08:28) Stomach Upset oxycodone [From Tylox] Allergy (Unknown, Verified 11/24/23 08:28) Rash Medication List - Last Reconciled 11/24/23 by Gonzalez Cheema PA-C albuterol sulfate 90 mcg/actuation 2 puffs inhalation Q4-6H PRN atorvastatin 10 mg PO DAILY fluticasone propionate 100 mcg/actuation (Flovent Diskus) 1 inh inhalation Q12H 30 days fluticasone propionate 50 mcg/actuation (Flonase Allergy Relief) 1 spray intranasal BID 30 days hydrochlorothiazide 25 mg PO DAILY 90 days metoprolol tartrate 25 mg PO BID montelukast (Singulair) 10 mg PO DAILY 90 days triamcinolone acetonide 0.1% 1 appl topical DAILY 30 days Tobacco use date assessed: 11/24/23 Fall risk assessment: 1 Fall in past year Last assessed Fall Risk: 11/24/23 Dental Screening Dental Screen Date: 11/24/23 Did you have a dental visit in the last 12 months?: Yes Did you have a dental problem in the last 6 months where you did not have access to dental care?: No Was dental information given to patient?: Patient has dentist HPI f/u HTN/ HLD HPI Details Patient is a 68-year-old female here today for a follow-up visit. ? Patient has a past medical history significant obesity, hypertension, obstructive sleep apnea, hyperlipidemia. .. Right hip osteoarthritis: Recently got x-ray of right hip that did show moderate arthritis. Has followed up with [place] orthopedic surgeon whom recommend physical therapy. She is not taking any NSAIDs or Tylenol at this time for her pain. She does report being significantly hindered due to her right hip pain as she has not been able to walk far distances and having trouble getting in and out of her car and doing her groceries. .. Obstructive sleep apnea: Has been found to have moderate to severe obstructive sleep apnea and was started on CPAP machine, has been unable to tolerate the CPAP mask due to feelings of more shortness of breath due to his use. Has tried new masks though still uncomfortable for her. Now followed by pulmonology. .. Hypertension:? Blood pressure elevated today in office.. Continues on metoprolol and hydrochlorothiazide. She is in some pain in her right hip which may be elevating her blood pressure. Advised to monitor blood pressure closely at home and if consistently elevated will make adjustments in her blood pressure medication. .. Impaired Glucose metabolism: Patient's most recent fasting blood sugar elevated at 116 and A1c of 5.9. She does understand she has a prediabetic. PLAN: We did discuss starting metformin though patient would like to hold off on continue working on lifestyle modifications. Laboratory Tests 05/17/23 11/15/23 09:05 09:12 RBC 5.08 Fasting Glucose 116 H Hemoglobin A1c % 5.9 Triglycerides 248 H Cholesterol 159 Urine Microalbumin < 5.0 [facility] Medical History Shortness of breath Somnolence, daytime Morbid obesity Surgical History History of umbilical hernia repair History of cholecystectomy History of tonsillectomy Family History Father Lung cancer Social History Housing: Condominium Alcohol intake: never Patient Tobacco Use Status: Never used Tobacco e-Cigarette/Vaping Use: Never Used Second Hand Smoke Exposure: No service: No Current occupational status: retired Cognitive needs: No Hearing needs: No Vision needs: No Questionnaire PHQ-9 Over the last 2 weeks, how often have you been bothered by any of the following problems? 1. Little interest or pleasure in doing things: not at all 2. Feeling down, depressed, or hopeless: not at all 3. Trouble falling or staying asleep, or sleeping too much: not at all 4. Feeling tired or having little energy: not at all 5. Poor appetite or overeating: not at all 6. Feeling bad about yourself - or that you are a failure or have let yourself or your family down: not at all 7. Trouble concentrating on things, such as reading the newspaper or watching television: not at all 8. Moving or speaking so slowly that other people could have noticed. Or the opposite - being so fidgety or restless that you have been moving around a lot more than usual: not at all 9. Thoughts that you would be better off or of hurting yourself in some way: not at all Total score: 0 Depression Screening Interpretation: Negative Depression Screening Done: Yes 32235 - PHQ-9 Billing: Yes Source: Developed by Drs. Smith Bolden, Lita Reagan, Vitaliy Ba and colleagues, with an educational nj from [employer]. Thrive Questionnaire Date Thrive assessed: 11/24/23 I am a: Patient What is your living situation today?: I have a steady place to live Within the past 12 months, did the food you bought not last and you didn't have the money to get more?: Never true Within the past 12 months, did you worry whether your food would run out before you got money to buy more?: Never true Do you have trouble paying for medicines?: No Do you have trouble getting transportation to medical appointments?: No Do you have trouble paying your heating and electricity bill?: No Do you have trouble taking care of your child, family member or friend?: No Do you have trouble with day-to-day activities such as bathing, preparing meals, shopping, managing finances, etc.?: No Are you currently unemployed and looking for a job?: No Are you interested in more education?: No Please select the resources that you would like help with: None Currently or been in a relationship where the following occur: No concerns reported THRIVE Score: 0 AUDIT C Alcohol Use Questionnaire (AUDIT-C) 1. How often do you have a drink containing alcohol?: Never Total Score: 0 ERIC-7 AMB Questionnaire ERIC-7 Date ERIC - 7 assessed: 11/24/23 Feeling nervous, anxious, or on edge: 0 = Not at all Not being able to stop or control worryin = Not at all Worrying too much about different things: 0 = Not at all Trouble relaxin = Not at all Being so restless that it is hard to sit still: 0 = Not at all Becoming easily annoyed or irritable: 0 = Not at all Feeling afraid as if something awful might happen: 0 = Not at all Total ERIC-7 score (0-4 normal; 5-9 mild; 10-14 moderate; 15-21 severe): 0 Source: Developed by Drs. Smith Bolden, Lita Reagan, Vitaliy Ba and colleagues, with an educational nj from [employer]. ERIC-7 Assessment Billing ERIC-7 Assessment Tool: ERIC-7 Assessment 22173 Review of Systems Const Denies headache(s) Eyes Denies loss of vision ENT Denies vertigo, Denies dizziness, Denies headache(s) and Denies sore throat Card Denies chest pain, Denies leg edema and Denies lightheadedness Resp Denies cough, Denies hemoptysis and Denies wheezing GI Denies abdominal pain, Denies melena, Denies constipation, Denies diarrhea and Denies vomiting Denies urinary frequency, Denies dysuria and Denies urinary urgency Musc Denies arthralgias, Denies joint swelling, Denies numbness and Denies tingling Neuro Denies Abnormal speech present, Denies behavioral changes, Denies vertigo, Denies dizziness, Denies headache(s), Denies loss of vision, Denies memory loss, Denies numbness and Denies tingling Psych Denies anxiety, Denies behavioral changes, Denies depression, Denies memory loss and Denies panic attacks Anatoliy/Lymph Denies easy bleeding and Denies easy bruising Aller/Immun Denies wheezing Physical exam (Primary Care) Vital Signs: Last Vital Signs Pulse 93 11/24/23 08:18 BP 162/90 H 11/24/23 08:18 Pulse Ox 96 11/24/23 08:18 Oxygen Delivery Method Room Air 11/24/23 08:18 BMI result Body Mass Index 44.5 Tobacco/Smoking Status: Tobacco use Status Tobacco use date assessed 11/24/23 11/24/23 08:24 Patient Tobacco Use Status Never used Tobacco 11/24/23 08:24 Tobacco use type 07/21/22 08:29 e-Cigarette/Vaping Use Never Used 11/24/23 08:24 PHQ-9: PHQ-9 Score PHQ-9: Total score 0 11/24/23 08:24 Depression Screening Interpretation: Negative Thrive Assessment: Date of Thrive Assessment Date Thrive assessed 11/24/23 11/24/23 08:24 Currently or been in a relationship where the following occur: No concerns reported Const General: healthy appearing, no acute distress, alert and awake Nutritional Appearance: well nourished Orientation/consciousness: oriented to person, oriented to place and oriented to time HENMT Ears: TM's normal bilaterally General nose exam: Normal nasal mucous membranes and turbinates present Eyes Conjunctivae: conjunctivae normal Sclerae: sclerae normal Pupils: Equal, round and reactive pupils present Neck Neck: Yes no lymphadenopathy and Yes no JVD Thyroid: Thyroid normal Carotids: no bruits Resp Effort & Inspection: normal respiratory effort and not tachypneic Auscultation: no crackles, no rales, no rhonchi and no wheezes Cardio Rate: regular rate Rhythm: regular rhythm Heart sounds: no murmurs and normal S1 and S2 GI Palpation (GI): Soft to palpation, nontender, no hepatomegaly and no splenomegaly Auscultation: normal bowel sounds Back/Spine/Pelvis Other: AMBULATING WITH A CANE, DOES APPEAR TO BE AMBULATING WITH AN ANTALGIC GAIT Skin General skin exam: no rashes or lesions noted and dry skin Neuro General: oriented to person, oriented to place and oriented to time Cranial nerves: Yes Equal, round and reactive pupils present Speech: No Abnormal speech present Gait exam (Neuro): Normal gait present Motor exam (neuro): no tremor noted Extrem Right upper extremity: full ROM Left upper extremity: full ROM Right lower extremity: full ROM; no edema Left lower extremity: full ROM; no edema Psych Mental Status: mental status grossly normal Speech and movement: Normal speech and movement present Affect: normal affect Attitude: cooperative Thought process: Normal thought process present Assessment and Plan Assessment & Plan (1) HTN (hypertension): Code(s): I10 - Essential (primary) hypertension Qualifiers: Hypertension type: primary hypertension Qualified Code(s): I10 - Essential (primary) hypertension Plan: Patient's blood pressure elevated today in office, is in some pain due to her hip osteoarthritis. Advised to blood close attention to her blood pressure readings at home and if elevated will consider making Change in her blood pressure medication. Will continue her current dose of metoprolol and h ydrochlorothiazide with goal blood pressure remained below 140/90 (2) Obese: Code(s): E66.9 - Obesity, unspecified Qualifiers: Obesity type: due to excess calories Obesity classification: adult class 3 (BMI >= 40) Serious obesity comorbidity presence: with serious comorbidity Body mass index: BMI 45.0-49.9 Qualified Code(s): E66.01 - Morbid (severe) obesity due to excess calories; Z68.42 - Body mass index [BMI] 45.0- 49.9, adult Plan: Patient does understand her BMI is over 40 will continue working on being more physically active and adapting to better eating habits to reduce her weight. (3) Impaired fasting glucose: Code(s): R73.01 - Impaired fasting glucose Plan: Patient's most recent fasting blood sugar improved. A1c still in prediabetic range. Will continue lifestyle modifications to reduce high carbohydrate foods in her diet. (4) URBANO (obstructive sleep apnea): Comment: MODERATELY SEVERE OBSTRUCTIVE SLEEP APNEA, WITH TOTAL SLEEP TIME AHI 18.7. CPAP WITH AUTO PAP MODE AND PRESSURE SETTING OF 6 TO 16 CM . SHE GOT HER CPAP DEVICE IN THE WEEK OF FEBRUARY, USE FOR 1 WEEK REGULARLY, THEN SHE HAD GONE FOR 2 WEEKS VACATION AND DID NOT CARRY THE CPAP WITH HER . NOW SHE PLANS TO USE IT REGULARLY AND SEEMS TO BE WELL MOTIVATED. SHE EXPLAINED ABOUT THE PROPER USE OF CPAP DEVICE. ADVISE THAT SHE SHOULD USE DISTILLED WATER IN THE WATER TANK AND USE THE HUMIDITY AT LEVEL 4,TO REDUCE THE DRYNESS. Code(s): G47.33 - Obstructive sleep apnea (adult) (pediatric) Plan: As per HPI patient does have moderate obstructive sleep apnea. Has not been unable to tolerate CPAP mask or nasal pillow. Like to hold off on obstructive sleep apnea treatment (5) HLD (hyperlipidemia): Code(s): E78.5 - Hyperlipidemia, unspecified Qualifiers: Hyperlipidemia type: mixed hyperlipidemia Qualified Code(s): E78.2 - Mixed hyperlipidemia Plan: Patient continues on statin therapy, most recent lipid panel showing appropriate total cholesterol and LDL. Goal LDL to remain below 160 (6) Osteoarthritis of right hip: Code(s): M16.11 - Unilateral primary osteoarthritis, right hip Qualifiers: Osteoarthritis type: primary Qualified Code(s): M16.11 - Unilateral primary osteoarthritis, right hip Plan: Patient continues to be hindered by her right hip osteoarthritis. Seen orthopedic who recommended physical therapy per patient continues to be in pretty significant pain while walking and would likely benefit from physical therapy. She would like a 2nd opinion from new orthopedic for discussion on possible injection. Will supply patient with Tylenol and NSAID to use on a p.r.n. basis for pain. Orders: Orders PT Evaluation and Treatment Today M16.11 - Unilateral primary osteoarthritis, right hip Hemoglobin A1c Today R73.01 - Impaired fasting glucose Comprehensive [place]. Panel Fast Today R73.01 - Impaired fasting glucose Lipid Panel Today E78.2 - Mixed hyperlipidemia Complete Blood Count no Diff Today E78.2 - Mixed hyperlipidemia Microalbumin, Random (w Creat) Today I10 - Essential (primary) hypertension Referrals Orthopedics Referral M16.11 - Unilateral primary osteoarthritis, right hip Medications: New ibuprofen 600 mg PO TID 30 days PRN 90 tabs 1RF pain M16.11 - Unilateral primary osteoarthritis, right hip acetaminophen 500 mg PO Q6H 30 days 120 caps 1RF fever M16.11 - Unilateral primary osteoarthritis, right hip Patient Instructions: GOAL: Blood pressure to be below 140/90 Barriers: Adherence to physical activity and healthy eating habits Coding Level of Care Code Est Pt Level 4 (64168) Diagnoses Primary hypertension I10 Hypertension type: primary hypertension Class 3 severe obesity due to excess calories with serious comorbidity and body mass index (BMI) of 45.0 to 49.9 in adult E66.01; Z68.42 Obesity type: due to excess calories Obesity classification: adult class 3 (BMI >= 40) Serious obesity comorbidity presence: with serious comorbidity Body mass index: BMI 45.0-49.9 Impaired fasting glucose R73.01 URBANO (obstructive sleep apnea) G47.33 Mixed hyperlipidemia E78.2 Hyperlipidemia type: mixed hyperlipidemia Primary osteoarthritis of right hip M16.11 Osteoarthritis type: primary Additional Codes ERIC-7 Assessment Billing - ERIC-7 Assessment Tool: ERIC-7 Assessment 73198 ([id number])
[2023-11-24 08:18] VITALS: BP 162/90; PULSE 93; O2SAT 96; BMI 44.5
== END 2023-11-24 09:01 | disposition home or self-care (01) ==
PROVIDERS: PCP Physician Assistant; Visit Provider Physician Assistant
DX: I10 Essential (primary) hypertension (principal); E66.01 Morbid (severe) obesity due to excess calories; Z68.42 Body mass index [BMI] 45.0-49.9, adult; R73.01 Impaired fasting glucose; G47.33 Obstructive sleep apnea (adult) (pediatric); E78.2 Mixed hyperlipidemia; M16.11 Unilateral primary osteoarthritis, right hip
CPT/HCPCS: 99214

== ENCOUNTER 2024-01-30 12:47 | Outpatient (RCR) | payer MEDICARE, SELFPAY | END 2024-02-17 10:25 | disposition home or self-care (01) | LOC: HO.PT 12:47 | PROVIDERS: PCP Physician Assistant; Visit Provider Physician Assistant | DX: M16.11 Unilateral primary osteoarthritis, right hip (principal) | CPT/HCPCS: 97110; 97162 ==

== ENCOUNTER 2024-04-18 08:41 | Outpatient (REF) | payer MEDICARE, SELFPAY ==
[2024-04-18 09:58] LABS: Hematocrit 41.7 % (37.0-47.0); Hemoglobin 13.2 g/dl (12.0-16.0); Mean Corpuscular HGB Conc 31.7 g/dl (31.0-35.0); Mean Corpuscular Hemoglobin 26.7 pg (27.0-33.0); Mean Corpuscular Volume 84.4 fL (80.0-98.0); Mean Platelet Volume 11.3 fL (9.4-12.3); Platelet Count 280 X10*3/uL (160-400); Red Blood Count 4.94 X10*6/uL (4.20-5.50); Red Cell Distribution Width 14.6 % (11.0-16.0); White Blood Count 8.4 X10*3/uL (4.8-10.8)
[2024-04-18 10:16] LABS: Estimated Average Glucose 131 mg/dL; Hemoglobin A1C 152.4222 umol/L; Hemoglobin A1c % 6.2 % (<6.0)
[2024-04-18 10:20] LABS: Alanine Aminotransferase 15 U/L (0-31); Albumin Level 3.8 g/dL (3.5-5.0); Alkaline Phosphatase 63 U/L (39-117); Anion Gap 11 (12-20); Aspartate Amino Transferase 16 U/L (5-31); Bilirubin Total 0.3 mg/dL (0.0-1.0); Blood Urea Nitrogen 10 mg/dL (9-16); Calcium 9.2 mg/dL (8.4-10.2); Carbon Dioxide 29 mmol/L (22-29); Chloride 105 mmol/L (96-108); Cholesterol 161 mg/dL (<200); Estimated Glomerular Filt Rate > 60; Glucose Fasting 110 mg/dL (60-99); HDL Cholesterol 39 mg/dL (>40); LDL Cholesterol Calculated 76 mg/dL (<100); Sodium 141 mmol/L (135-145); Total Protein 6.9 g/dL (6.5-8.0); Triglycerides 231 mg/dL (<150)
[2024-04-18 14:10] LABS: Microalbum/Creatinine Ratio Ur 11.1 ug/mg cr (<30)
== END 2024-04-18 08:42 | disposition home or self-care (01) ==
LOC: HO.HMGCLDS 08:41
PROVIDERS: PCP Physician Assistant; Visit Provider Physician Assistant
DX: R73.01 Impaired fasting glucose (principal); E78.2 Mixed hyperlipidemia; I10 Essential (primary) hypertension
CPT/HCPCS: 36415; 80053; 80061; 82043; 82570; 83036; 85027

== ENCOUNTER 2024-04-24 11:01 | Outpatient (AMB) | payer MEDICARE, SELFPAY ==
[2024-04-24 11:12] VITALS: BP 160/86; PULSE 78; TEMP 36.3; O2SAT 97; BMI 45.7
--- NOTE | 2024-04-24 11:12 | A.OFFPC_ITS ---
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 Accompanied by: Self / Same As Patient Allergies acetaminophen [From Tylox] Allergy (Unknown, Verified 04/24/24 11:19) Rash lactose Allergy (Unknown, Verified 04/24/24 11:19) Stomach Upset oxycodone [From Tylox] Allergy (Unknown, Verified 04/24/24 11:19) Rash Medication List - Last Reconciled 04/24/24 by Gonzalez Cheema PA-C acetaminophen 500 mg PO Q6H 30 days albuterol sulfate 90 mcg/actuation 2 puffs inhalation Q4-6H PRN atorvastatin 10 mg PO DAILY fluticasone propionate 100 mcg/actuation (Flovent Diskus) 1 inh inhalation Q12H 30 days fluticasone propionate 50 mcg/actuation (Flonase Allergy Relief) 1 spray intranasal BID 30 days hydrochlorothiazide 25 mg PO DAILY 90 days ibuprofen 600 mg PO TID PRN 30 days metoprolol tartrate 25 mg PO BID montelukast (Singulair) 10 mg PO DAILY 90 days triamcinolone acetonide 0.1% 1 appl topical DAILY 30 days Tobacco use date assessed: 04/24/24 Fall risk assessment: No Falls in past year Last assessed Fall Risk: 04/24/24 Dental Screening Dental Screen Date: 04/24/24 Did you have a dental visit in the last 12 months?: No Did you have a dental problem in the last 6 months where you did not have access to dental care?: No Was dental information given to patient?: Patient has dentist HPI 4 month F/U HPI Details Patient is a 69 year-old female here today for a follow-up visit. ? Patient has a past medical history significant obesity, hypertension, obstructive sleep apnea, hyperlipidemia. .. Right hip osteoarthritis: Recently got x-ray of right hip that did show moderate arthritis. Has followed up with [place] orthopedic surgeon whom recommend physical therapy. She is not taking any NSAIDs or Tylenol at this time for her pain. She does report being significantly hindered due to her right hip pain as she has not been able to walk far distances and having trouble getting in and out of her car and doing her groceries. .. Obstructive sleep apnea: Has been found to have moderate to severe obstructive sleep apnea and was started on CPAP machine, has been unable to tolerate the CPAP mask due to feelings of more shortness of breath due to his use. Has tried new masks though still uncomfortable for her. Does not follow up with pulmonology any further. .. Hypertension:? Blood pressure elevated today in office. Has unfortunately gained weight since last office visit. Continues on metoprolol and hydrochlorothiazide. She is in some pain in her right hip which may be elevating her blood pressure. Advised to monitor blood pressure closely at home and if consistently elevated will make adjustments in her blood pressure medication. PLAN: Will add on lisinopril for better blood pressure control .. Class 3 obesity: Unfortunately has gained weight since last office visit. She has weight related comorbidities such as hypertension and obstructive sleep apnea, hypertriglyceridemia along with impaired glucose metabolism. .. Impaired Glucose metabolism: Patient's most recent fasting blood sugar elevated and A1c up at 6.2. She does understand she has a prediabetic. PLAN: We did discuss starting metformin though patient would like to hold off on continue working on lifestyle modifications. Laboratory Tests 11/15/23 04/18/24 04/18/24 09:12 08:47 11:45 Fasting Glucose 110 H Hemoglobin A1c % 5.9 6.2 H Triglycerides 248 H 231 H Cholesterol 161 LDL Cholesterol, C alc 76 Urine Microalbumin 10.0 [facility] Medical History Shortness of breath Somnolence, daytime Morbid obesity Surgical History History of umbilical hernia repair History of cholecystectomy History of tonsillectomy Family History Father Lung cancer Social History Housing: Condominium Alcohol intake: never Patient Tobacco Use Status: Never used Tobacco e-Cigarette/Vaping Use: Never Used Second Hand Smoke Exposure: No service: No Current occupational status: retired Cognitive needs: No Hearing needs: No Vision needs: No Questionnaire PHQ-9 Over the last 2 weeks, how often have you been bothered by any of the following problems? 1. Little interest or pleasure in doing things: not at all 2. Feeling down, depressed, or hopeless: not at all 3. Trouble falling or staying asleep, or sleeping too much: not at all 4. Feeling tired or having little energy: not at all 5. Poor appetite or overeating: not at all 6. Feeling bad about yourself - or that you are a failure or have let yourself or your family down: not at all 7. Trouble concentrating on things, such as reading the newspaper or watching television: not at all 8. Moving or speaking so slowly that other people could have noticed. Or the opposite - being so fidgety or restless that you have been moving around a lot more than usual: not at all 9. Thoughts that you would be better off or of hurting yourself in some way: not at all Total score: 0 Depression Screening Interpretation: Negative Depression Screening Done: Yes 18597 - PHQ-9 Billing: Yes Source: Developed by Drs. Smith Bolden, Lita Reagan, Vitaliy Ba and colleagues, with an educational nj from [employer]. Thrive Questionnaire Date Thrive assessed: 04/24/24 I am a: Patient What is your living situation today?: I have a steady place to live Within the past 12 months, did the food you bought not last and you didn't have the money to get more?: Never true Within the past 12 months, did you worry whether your food would run out before you got money to buy more?: Never true Do you have trouble paying for medicines?: No Do you have trouble getting transportation to medical appointments?: No Do you have trouble paying your heating and electricity bill?: No Do you have trouble taking care of your child, family member or friend?: No Do you have trouble with day-to-day activities such as bathing, preparing meals, shopping, managing finances, etc.?: No Are you currently unemployed and looking for a job?: No Are you interested in more education?: No Please select the resources that you would like help with: None Currently or been in a relationship where the following occur: No concerns reported THRIVE Score: 0 AUDIT C Alcohol Use Questionnaire (AUDIT-C) 1. How often do you have a drink containing alcohol?: Never 3. How often do you have six or more drinks on one occasion?: Never Total Score: 0 ERIC-7 AMB Questionnaire ERIC-7 Date ERIC - 7 assessed: 04/24/24 Feeling nervous, anxious, or on edge: 0 = Not at all Not being able to stop or control worryin = Not at all Worrying too much about different things: 0 = Not at all Trouble relaxin = Not at all Being so restless that it is hard to sit still: 0 = Not at all Becoming easily annoyed or irritable: 0 = Not at all Feeling afraid as if something awful might happen: 0 = Not at all Total ERIC-7 score (0-4 normal; 5-9 mild; 10-14 moderate; 15-21 severe): 0 Source: Developed by Drs. Smith Bolden, Lita Reagan, Vitaliy Ba and colleagues, with an educational nj from [employer]. ERIC-7 Assessment Billing ERIC-7 Assessment Tool: ERIC-7 Assessment 16773 Review of Systems Const Denies headache(s) Eyes Denies loss of vision ENT Denies vertigo, Denies dizziness, Denies headache(s) and Denies sore throat Card Denies chest pain, Denies leg edema and Denies lightheadedness Resp Denies cough, Denies hemoptysis and Denies wheezing GI Denies abdominal pain, Denies melena, Denies constipation, Denies diarrhea and Denies vomiting Denies urinary frequency, Denies dysuria and Denies urinary urgency Musc Denies arthralgias, Denies joint swelling, Denies numbness and Denies tingling Neuro Denies Abnormal speech present, Denies behavioral changes, Denies vertigo, Denies dizziness, Denies headache(s), Denies loss of vision, Denies memory loss, Denies numbness and Denies tingling Psych Denies anxiety, Denies behavioral changes, Denies depression, Denies memory loss and Denies panic attacks Anatoliy/Lymph Denies easy bleeding and Denies easy bruising Aller/Immun Denies wheezing Physical exam (Primary Care) Vital Signs: Last Vital Signs Temp 97.3 F 04/24/24 11:12 Pulse 78 04/24/24 11:12 BP 155/78 H 04/24/24 11:37 Pulse Ox 97 04/24/24 11:12 Oxygen Delivery Method Room Air 04/24/24 11:12 BMI result Body Mass Index 45.7 BMI Assessment/Plan discussion: High BMI High, discussed plan: lifestyle, weight reduction, dietary and physical activity Tobacco/Smoking Status: Tobacco use Status Tobacco use date assessed 04/24/24 04/24/24 11:18 Patient Tobacco Use Status Never used Tobacco 04/24/24 11:18 Tobacco use type 07/21/22 08:29 e-Cigarette/Vaping Use Never Used 04/24/24 11:18 PHQ-9: PHQ-9 Score PHQ-9: Total score 0 04/24/24 11:22 Depression Screening Interpretation: Negative Thrive Assessment: Date of Thrive Assessment Date Thrive assessed 04/24/24 04/24/24 11:18 Currently or been in a relationship where the following occur: No concerns reported Const General: healthy appearing, no acute distress, alert and awake Nutritional Appearance: well nourished Orientation/consciousness: oriented to person, oriented to place and oriented to time HENMT Ears: TM's normal bilaterally General nose exam: Normal nasal mucous membranes and turbinates present Eyes Conjunctivae: conjunctivae normal Sclerae: sclerae normal Pupils: Equal, round and reactive pupils present Neck Neck: Yes no lymphadenopathy and Yes no JVD Thyroid: Thyroid normal Carotids: no bruits Resp Effort & Inspection: normal respiratory effort and not tachypneic Auscultation: no crackles, no rales, no rhonchi and no wheezes Cardio Rate: regular rate Rhythm: regular rhythm Heart sounds: no murmurs and normal S1 and S2 GI Palpation (GI): Soft to palpation, nontender, no hepatomegaly and no splenomegaly Auscultation: normal bowel sounds Skin General skin exam: no rashes or lesions noted and dry skin Neuro General: oriented to person, oriented to place and oriented to time Cranial nerves: Yes Equal, round and reactive pupils present Speech: No Abnormal speech present Gait exam (Neuro): Normal gait present Motor exam (neuro): no tremor noted Extrem Right upper extremity: full ROM Left upper extremity: full ROM Right lower extremity: full ROM; no edema Left lower extremity: full ROM; no edema Psych Mental Status: mental status grossly normal Speech and movement: Normal speech and movement present Affect: normal affect Attitude: cooperative Thought process: Normal thought process present Coding Level of Care Code Est Pt Level 4 (36864) Diagnoses Primary hypertension I10 Hypertension type: primary hypertension Class 3 obesity E66.813 URBANO (obstructive sleep apnea) G47.33 Mixed hyperlipidemia E78.2 Hyperlipidemia type: mixed hyperlipidemia Impaired fasting glucose R73.01 Additional Codes ERIC-7 Assessment Billing - ERIC-7 Assessment Tool: ERIC-7 Assessment 88655 ([id number]) PHQ-9 - 86108 - PHQ-9 Billing: Yes ([id number]) Assessment & Plan Assessment & Plan (1) HTN (hypertension): Code(s): I10 - Essential (primary) hypertension Category: Medical Qualifiers: Hypertension type: primary hypertension Qualified Code(s): I10 - Essential (primary) hypertension Plan: Patient's blood pressure elevated today office. Patient is asymptomatic without any chest discomfort dizziness or headaches. She does seem to have uncontrolled obstructive sleep apnea as well though has not been able tolerate CPAP mask. Will add on lisinopril for better blood pressure control. Patient promises to start monitoring her blood pressure at home with goal blood pressure to be below 140/90. (2) Class 3 obesity: Code(s): E66.813 - Obesity, class 3 Category: Medical Plan: Patient does understand her BMI is over 45 work on being more physically active and adapt to better eating habits to reduce her weight. (3) URBANO (obstructive sleep apnea): Comment: MODERATELY SEVERE OBSTRUCTIVE SLEEP APNEA, WITH TOTAL SLEEP TIME AHI 18.7. CPAP WITH AUTO PAP MODE AND PRESSURE SETTING OF 6 TO 16 CM . SHE GOT HER CPAP DEVICE IN THE WEEK OF FEBRUARY, USE FOR 1 WEEK REGULARLY, THEN SHE HAD GONE FOR 2 WEEKS VACATION AND DID NOT CARRY THE CPAP WITH HER . NOW SHE PLANS TO USE IT REGULARLY AND SEEMS TO BE WELL MOTIVATED. SHE EXPLAINED ABOUT THE PROPER USE OF CPAP DEVICE. ADVISE THAT SHE SHOULD USE DISTILLED WATER IN THE WATER TANK AND USE THE HUMIDITY AT LEVEL 4,TO REDUCE THE DRYNESS. Code(s): G47.33 - Obstructive sleep apnea (adult) (pediatric) Category: Medical Plan: As per HPI she has lost follow-up pulmonology. Does have obstructive sleep apnea though was not able to tolerate CPAP (4) HLD (hyperlipidemia): Code(s): E78.5 - Hyperlipidemia, unspecified Category: Medical Qualifiers: Hyperlipidemia type: mixed hyperlipidemia Qualified Code(s): E78.2 - Mixed hyperlipidemia Plan: Patient's most recent lipid panel showing good control total cholesterol and LDL. She has compliant with taking her statin medication. Will continue to follow fasting lipids with goal LDL to be below 130 (5) Impaired fasting glucose: Code(s): R73.01 - Impaired fasting glucose Category: Medical Plan: Most recent fasting blood sugar and A1c in prediabetic range. She does understand she needs to reduce carbohydrates in her diet. Orders: Orders Comprehensive [place]. Panel Fast Today R73.01 - Impaired fasting glucose Hemoglobin A1c Today R73.01 - Impaired fasting glucose Lipid Panel Today E78.2 - Mixed hyperlipidemia Medications: New lisinopril-hydrochlorothiazide 20-25 mg 1 tab PO DAILY 90 tabs 1RF 90 days I10 - Essential (primary) hypertension Discontinued hydrochlorothiazide Discontinued Reason: Doctor's Order 25 mg PO DAILY 90 days 90 tabs 2RF I10 - Essential (primary) hypertension Patient Instructions: Goal: Blood pressure to be below 140/90, Barriers: Adherence to physical activity and healthy eating habits
[2024-04-24 11:37] VITALS: BP 155/78
== END 2024-04-24 11:45 | disposition home or self-care (01) ==
PROVIDERS: PCP Physician Assistant; Visit Provider Physician Assistant
DX: I10 Essential (primary) hypertension (principal); E66.813 Obesity, class 3; Z68.42 Body mass index [BMI] 45.0-49.9, adult; G47.33 Obstructive sleep apnea (adult) (pediatric); E78.2 Mixed hyperlipidemia; R73.01 Impaired fasting glucose

== ENCOUNTER → 2024-04-24 11:01 | Outpatient (BNVA) | payer MEDICARE, SELFPAY | PROVIDERS: PCP Physician Assistant; Visit Provider Physician Assistant | DX: I10 Essential (primary) hypertension (principal); E66.813 Obesity, class 3; G47.33 Obstructive sleep apnea (adult) (pediatric); E78.2 Mixed hyperlipidemia; R73.01 Impaired fasting glucose | CPT/HCPCS: 96127; 99212 ==

== ENCOUNTER 2024-09-17 07:07 | Outpatient (REF) | payer MEDICARE, SELFPAY ==
--- OUTSIDE RECORDS SUMMARY | 2024-09-17 07:10 | XMS_ITS | Patient Health Record ---
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
[2024-09-17 11:06] LABS: Hemoglobin A1C 149.2566 umol/L; Total Hemoglobin (HGBA1C) 3473.0581 umol/L
[2024-09-17 11:50] LABS: Alanine Aminotransferase 13 U/L (0-31); Albumin Level 4.1 g/dL (3.5-5.0); Alkaline Phosphatase 66 U/L (39-117); Anion Gap 13 (12-20); Aspartate Amino Transferase 18 U/L (5-31); Blood Urea Nitrogen 15 mg/dL (9-16); Calcium 9.3 mg/dL (8.4-10.2); Carbon Dioxide 29 mmol/L (22-29); Chloride 105 mmol/L (96-108); Cholesterol 155 mg/dL (<200); Estimated Glomerular Filt Rate > 60; HDL Cholesterol 37 mg/dL (>40); Potassium 4.7 mmol/L (3.3-5.1); Sodium 142 mmol/L (135-145); Total Protein 6.7 g/dL (6.5-8.0); Triglycerides 166 mg/dL (<150)
== END 2024-09-17 07:08 | disposition home or self-care (01) ==
LOC: HO.HMGCLDS 07:07
PROVIDERS: PCP Physician Assistant; Visit Provider Physician Assistant
DX: E78.2 Mixed hyperlipidemia (principal); R73.01 Impaired fasting glucose
CPT/HCPCS: 36415; 80053; 80061; 83036

== ENCOUNTER 2024-09-20 09:32 | Outpatient (AMB) | payer MEDICARE, SELFPAY ==
--- NOTE | 2024-09-20 09:44 | A.OFFPC_ITS ---
Vital Signs 09/20/24 09:45 Height 5 ft 4 in Weight 262 lb BMI 45.0 BP 130/70 Blood Pressure Location Lt brachial Position Sitting Pulse 77 Pulse Source Pulse Oximeter Pulse Oximetry (%) 95 Oxygen Delivery Method Room Air Intake Visit Reasons: f/u HTN/ IGM Board Finisher Required: No Accompanied by: Self / Same As Patient Allergies acetaminophen (From Tylox) Allergy (Unknown, Verified 09/20/24 10:08) Rash lactose Allergy (Unknown, Verified 09/20/24 10:08) Stomach Upset oxycodone (From Tylox) Allergy (Unknown, Verified 09/20/24 10:08) Rash Medication List - Last Reconciled 09/20/24 by Gonzalez Cheema PA-C acetaminophen 500 mg PO Q6H 30 days albuterol sulfate 90 mcg/actuation 2 puffs inhalation Q4-6H PRN atorvastatin 10 mg PO DAILY fluticasone propionate 100 mcg/actuation (Flovent Diskus) 1 inh inhalation Q12H 30 days fluticasone propionate 50 mcg/actuation (Flonase Allergy Relief) 1 spray intranasal BID 30 days ibuprofen 600 mg PO TID PRN 30 days lisinopril-hydrochlorothiazide 20-25 mg 1 tab PO DAILY 90 days metoprolol tartrate 25 mg PO BID montelukast (Singulair) 10 mg PO DAILY 90 days triamcinolone acetonide 0.1% 1 appl topical DAILY 30 days Tobacco use date assessed: 09/20/24 Fall risk assessment: No Falls in past year Last assessed Fall Risk: 09/20/24 Dental Screening Dental Screen Date: 09/20/24 HPI f/u HTN/ IGM HPI Details Patient is a 69 year-old female here today for a follow-up visit. ? Patient has a past medical history significant obesity, hypertension, obstructive sleep apnea, hyperlipidemia. .. Right hip osteoarthritis: Patient reports her right hip and knee pains has been better. Continues to walk with a cane to help her balance. .. Obstructive sleep apnea: Has been found to have moderate to severe obstructive sleep apnea and was started on CPAP machine, has been unable to tolerate the CPAP mask due to feelings of more shortness of breath due to his use. Has tried new masks though still uncomfortable for her. Does not follow up with pulm onology any further. .. Hypertension:? Blood pressure acceptable today in office. Has lost weight since last office visit Continues on metoprolol and hydrochlorothiazide. Recently added lisinopril and blood pressure seems to be much improved She is in some pain in her right hip which may be elevating her blood pressure. Advised to monitor blood pressure closely at home and if consistently elevated will make adjustments in her blood pressure medication. .. Class 3 obesity: Has lost a few lb since last office visit . She has weight related comorbidities such as hypertension and obstructive sleep apnea, hypertriglyceridemia along with impaired glucose metabolism. .. Impaired Glucose metabolism: Most recent A1c is slightly improved at 6.1. Fasting blood sugar at 111 She does understand she has a prediabetic. Will continue work on lifestyle and dietary modification Laboratory Tests 04/18/24 09/17/24 08:47 07:16 Fasting Glucose 111 H Hemoglobin A1c % 6.2 H 6.1 H Triglycerides 231 H 166 H [facility] Medical History Shortness of breath Somnolence, daytime Morbid obesity Surgical History History of umbilical hernia repair History of cholecystectomy History of tonsillectomy Family History Father Lung cancer Social History Housing: Condominium Alcohol intake: never Patient Tobacco Use Status: Never used Tobacco e-Cigarette/Vaping Use: Never Used Second Hand Smoke Exposure: No service: No Current occupational status: retired Cognitive needs: No Hearing needs: No Vision needs: No Questionnaire PHQ-9 Over the last 2 weeks, how often have you been bothered by any of the following problems? 1. Little interest or pleasure in doing things: not at all 2. Feeling down, depressed, or hopeless: not at all 3. Trouble falling or staying asleep, or sleeping too much: not at all 4. Feeling tired or having little energy: not at all 5. Poor appetite or overeating: not at all 6. Feeling bad about yourself - or that you are a failure or have let yourself or your family down: not at all 7. Trouble concentrating on things, such as reading the newspaper or watching television: not at all 8. Moving or speaking so slowly that other people could have noticed. Or the opposite - being so fidgety or restless that you have been moving around a lot more than usual: not at all 9. Thoughts that you would be better off or of hurting yourself in some way: not at all Total score: 0 Depression Screening Interpretation: Negative Depression Screening Done: Yes 31498 - PHQ-9 Billing: Yes Source: Developed by Drs. Smith Bolden, Lita Reagan, Vitaliy Ba and colleagues, with an educational nj from [employer]. Thrive Questionnaire Date Thrive assessed: 09/20/24 I am a: Patient What is your living situation today?: I have a steady place to live Within the past 12 months, did the food you bought not last and you didn't have the money to get more?: Never true Within the past 12 months, did you worry whether your food would run out before you got money to buy more?: Never true Do you have trouble paying for medicines?: I choose not to answer this question Do you have trouble getting transportation to medical appointments?: No Do you have trouble paying your heating and electricity bill?: No Do you have trouble taking care of your child, family member or friend?: No Do you have trouble with day-to-day activities such as bathing, preparing meals, shopping, managing finances, etc.?: No Are you currently unemployed and looking for a job?: No Are you interested in more education?: No Please select the resources that you would like help with: None Currently or been in a relationship where the following occur: No concerns reported THRIVE Score: 0 AUDIT C Alcohol Use Questionnaire (AUDIT-C) 1. How often do you have a drink containing alcohol?: Never Total Score: 0 ERIC-7 AMB Questionnaire ERIC-7 Date ERIC - 7 assessed: 09/20/24 Feeling nervous, anxious, or on edge: 0 = Not at all Not being able to stop or control worryin = Not at all Worrying too much about different things: 0 = Not at all Trouble relaxin = Not at all Being so restless that it is hard to sit still: 0 = Not at all Becoming easily annoyed or irritable: 0 = Not at all Feeling afraid as if something awful might happen: 0 = Not at all Total ERIC-7 score (0-4 normal; 5-9 mild; 10-14 moderate; 15-21 severe): 0 Source: Developed by Drs. Smith Bolden, Lita Reagan, Vitaliy Ba and colleagues, with an educational nj from [employer]. ERIC-7 Assessment Billing ERIC-7 Assessment Tool: ERIC-7 Assessment 25896 Review of Systems Const Denies headache(s) Eyes Denies loss of vision ENT Denies vertigo, Denies dizziness, Denies headache(s) and Denies sore throat Card Denies chest pain, Denies leg edema and Denies lightheadedness Resp Denies cough, Denies hemoptysis and Denies wheezing GI Denies abdominal pain, Denies melena, Denies constipation, Denies diarrhea and Denies vomiting Denies urinary frequency, Denies dysuria and Denies urinary urgency Musc Denies arthralgias, Denies joint swelling, Denies numbness and Denies tingling Neuro Denies Abnormal speech present, Denies behavioral changes, Denies vertigo, Denies dizziness, Denies headache(s), Denies loss of vision, Denies memory loss, Denies numbness and Denies tingling Psych Denies anxiety, Denies behavioral changes, Denies depression, Denies memory loss and Denies panic attacks Anatoliy/Lymph Denies easy bleeding and Denies easy bruising Aller/Immun Denies wheezing Physical exam (Primary Care) Vital Signs: Last Vital Signs Pulse 77 09/20/24 09:45 BP 130/70 09/20/24 09:45 Pulse Ox 95 09/20/24 09:45 Oxygen Delivery Method Room Air 09/20/24 09:45 BMI result Body Mass Index 45.0 BMI Assessment/Plan discussion: High BMI High, discussed plan: lifestyle, weight reduction, dietary and physical activity Tobacco/Smoking Status: Tobacco use Status Tobacco use date assessed 09/20/24 09/20/24 09:50 Patient Tobacco Use Status Never used Tobacco 09/20/24 09:50 Tobacco use type 07/21/22 08:29 e-Cigarette/Vaping Use Never Used 09/20/24 09:50 PHQ-9: PHQ-9 Score PHQ-9: Total score 0 09/20/24 09:50 Depression Screening Interpretation: Negative Thrive Assessment: Date of Thrive Assessment Date Thrive assessed 09/20/24 09/20/24 09:50 Currently or been in a relationship where the following occur: No concerns reported Const General: healthy appearing, no acute distress, alert and awake Nutritional Appearance: well nourished Orientation/consciousness: oriented to person, oriented to place and oriented to time HENMT Ears: TM's normal bilaterally General nose exam: Normal nasal mucous membranes and turbinates present Eyes Conjunctivae: conjunctivae normal Sclerae: sclerae normal Pupils: Equal, round and reactive pupils present Neck Neck: Yes no lymphadenopathy and Yes no JVD Thyroid: Thyroid normal Carotids: no bruits Resp Effort & Inspection: normal respiratory effort and not tachypneic Auscultation: no crackles, no rales, no rhonchi and no wheezes Cardio Rate: regular rate Rhythm: regular rhythm Heart sounds: no murmurs and normal S1 and S2 GI Palpation (GI): Soft to palpation, nontender, no hepatomegaly and no splenomegaly Auscultation: normal bowel sounds Skin General skin exam: no rashes or lesions noted and dry skin Neuro General: oriented to person, oriented to place and oriented to time Cranial nerves: Yes Equal, round and reactive pupils present Speech: No Abnormal speech present Gait exam (Neuro): Normal gait present Motor exam (neuro): no tremor noted Extrem Right upper extremity: full ROM Left upper extremity: full ROM Right lower extremity: full ROM; no edema Left lower extremity: full ROM; no edema Psych Mental Status: mental status grossly normal Speech and movement: Normal speech and movement present Affect: normal affect Attitude: cooperative Thought process: Normal thought process present Coding Level of Care Code Est Pt Level 4 (55898) Diagnoses Primary hypertension I10 Hypertension type: primary hypertension Class 3 obesity E66.813 URBANO (obstructive sleep apnea) G47.33 Mixed hyperlipidemia E78.2 Hyperlipidemia type: mixed hyperlipidemia Impaired fasting glucose R73.01 Keratosis L57.0 Additional Codes ERIC-7 Assessment Billing - ERIC-7 Assessment Tool: ERIC-7 Assessment 71606 ([id number]) PHQ-9 - 64296 - PHQ-9 Billing: Yes ([id number]) Assessment & Plan Assessment & Plan (1) HTN (hypertension): Code(s): I10 - Essential (primary) hypertension Category: Medical Qualifiers: Hypertension type: primary hypertension Qualified Code(s): I10 - Essential (primary) hypertension Plan: Patient's blood pressure much improved. Patient is asymptomatic without any chest discomfort dizziness or headaches. She does seem to have uncontrolled obstructive sleep apnea as well though has not been able tolerate CPAP mask. We have added on lisinopril to her blood pressure med regime and blood pressure seem to be better controlled l. Patient promises to start monitoring her blood pressure at home with goal blood pressure to be below 140/90. (2) Class 3 obesity: Code(s): E66.813 - Obesity, class 3 Category: Medical Plan: Has been able to lose a few lb since last office visit Patient does understand her BMI is over 45 work on being more physically active and adapt to better eating habits to reduce her weight. (3) URBANO (obstructive sleep apnea): Comment: MODERATELY SEVERE OBSTRUCTIVE SLEEP APNEA, WITH TOTAL SLEEP TIME AHI 18.7. CPAP WITH AUTO PAP MODE AND PRESSURE SETTING OF 6 TO 16 CM . SHE GOT HER CPAP DEVICE IN THE WEEK OF FEBRUARY, USE FOR 1 WEEK REGULARLY, THEN SHE HAD GONE FOR 2 WEEKS VACATION AND DID NOT CARRY THE CPAP WITH HER . NOW SHE PLANS TO USE IT REGULARLY AND SEEMS TO BE WELL MOTIVATED. SHE EXPLAINED ABOUT THE PROPER USE OF CPAP DEVICE. ADVISE THAT SHE SHOULD USE DISTILLED WATER IN THE WATER TANK AND USE THE HUMIDITY AT LEVEL 4,TO REDUCE THE DRYNESS. Code(s): G47.33 - Obstructive sleep apnea (adult) (pediatric) Category: Medical Plan: As per HPI she has lost follow-up pulmonology. Does have obstructive sleep apnea though was not able to tolerate CPAP (4) HLD (hyperlipidemia): Code(s): E78.5 - Hyperlipidemia, unspecified Category: Medical Qualifiers: Hyperlipidemia type: mixed hyperlipidemia Qualified Code(s): E78.2 - Mixed hyperlipidemia Plan: Patient's most recent lipid panel showing good control total cholesterol and LDL. Patient's triglycerides at much improved since last lab draw.. She has compliant with taking her statin medication. Will continue to follow fasting lipids with goal LDL to be below 130 (5) Impaired fasting glucose: Code(s): R73.01 - Impaired fasting glucose Category: Medical Plan: Most recent fasting blood sugar and A1c in prediabetic range. She does understand she needs to reduce carbohydrates in her diet. (6) Keratosis: Code(s): L57.0 - Actinic keratosis Category: Medical Plan: Patient has developed a keratotic like lesion over the posterior left side of her neck. She would like to see Dermatology for removal Orders: Orders Hemoglobin A1c Today R73.01 - Impaired fasting glucose Comprehensive [place]. Panel Fast Today I10 - Essential (primary) hypertension Complete Blood Count no Diff Today I10 - Essential (primary) hypertension Lipid Panel Today E78.2 - Mixed hyperlipidemia Referrals Dermatology Referral L57.0 - Actinic keratosis Medications: Refilled lisinopril-hydrochlorothiazide 20-25 mg 1 tab PO DAILY 90 tabs 1RF 90 days I10 - Essential (primary) hypertension
[2024-09-20 09:45] VITALS: BP 130/70; PULSE 77; O2SAT 95; BMI 45.0
--- OUTSIDE RECORDS SUMMARY | 2024-09-20 10:03 | XMS_ITS | Patient Health Record ---
Author Organization [facility] Address [address] [place] [id number] Care Team Providers Care Office Employee Name Role Phone Claus Jacinto Jr Reason For Referral No Information Plan Of Treatment No Information
== END 2024-09-20 10:25 | disposition home or self-care (01) ==
LOC: HO.HMCH 09:33
PROVIDERS: PCP Physician Assistant; Visit Provider Physician Assistant
DX: I10 Essential (primary) hypertension (principal); E66.813 Obesity, class 3; Z68.42 Body mass index [BMI] 45.0-49.9, adult; G47.33 Obstructive sleep apnea (adult) (pediatric); E78.2 Mixed hyperlipidemia; R73.01 Impaired fasting glucose; L57.0 Actinic keratosis

== ENCOUNTER → 2024-09-20 09:32 | Outpatient (BNVA) | payer MEDICARE, SELFPAY | PROVIDERS: PCP Physician Assistant; Visit Provider Physician Assistant | DX: I10 Essential (primary) hypertension (principal); E78.2 Mixed hyperlipidemia; G47.33 Obstructive sleep apnea (adult) (pediatric); R73.01 Impaired fasting glucose; L57.0 Actinic keratosis; E66.813 Obesity, class 3; Z68.41 Body mass index [BMI] 40.0-44.9, adult; Z71.3 Dietary counseling and surveillance | CPT/HCPCS: 96127; 99212 ==

== ENCOUNTER 2024-12-14 11:09 | Outpatient (AMB) | payer MEDICARE, SELFPAY ==
[2024-12-14 11:15] VITALS: BP 132/92; PULSE 79; TEMP 36.3; O2SAT 97; BMI 43.4
--- NOTE | 2024-12-14 11:15 | A.OFFPC_ITS ---
Vital Signs 12/14/24 11:15 Height 5 ft 4 in Weight 253 lb 2 oz BMI 43.4 BP 132/92 H Blood Pressure Location Lt brachial Position Sitting Pulse 79 Pulse Source Pulse Oximeter Temp 97.3 F Temp Source Temporal Artery Scan Pulse Oximetry (%) 97 Oxygen Delivery Method Room Air Intake Visit Reasons: Lump n LT side near column bone Allergies acetaminophen (From Tylox) Allergy (Unknown, Verified 12/14/24 11:20) Rash lactose Allergy (Unknown, Verified 12/14/24 11:20) Stomach Upset oxycodone (From Tylox) Allergy (Unknown, Verified 12/14/24 11:20) Rash Tobacco use date assessed: 12/14/24 Fall risk assessment: No Falls in past year Last assessed Fall Risk: 12/14/24 Dental Screening Dental Screen Date: 12/14/24 Did you have a dental visit in the last 12 months?: Yes Did you have a dental problem in the last 6 months where you did not have access to dental care?: No Was dental information given to patient?: Patient has dentist HPI HPI Comments History of Present Illness Details The patient is a 69-year-old female presenting with musculoskeletal pain. The pain began a couple of weeks ago and was initially attributed to an awkward sleeping position, but it has persisted. The pain is described as a dull ache, sometimes felt with movement, and does not pulsate. The patient has not used any medication for the pain due to uncertainty about its cause. There is some redness in the area, likely from rubbing, but no significant swelling was observed. The patient has a history of smoking 40 years ago but has not smoked since. She is not diabetic but has been informed she is prediabetic. [facility] Medical History Shortness of breath Somnolence, daytime Morbid obesity Surgical History History of umbilical hernia repair History of cholecystectomy History of tonsillectomy Family History Father Lung cancer Social History Housing: Condominium Alcohol intake: never Patient Tobacco Use Status: Never used Tobacco e-Cigarette/Vaping Use: Never Used Second Hand Smoke Exposure: No service: No Current occupational status: retired Cognitive needs: No Hearing needs: No Vision needs: No Questionnaire PHQ-9 Over the last 2 weeks, how often have you been bothered by any of the following problems? 1. Little interest or pleasure in doing things: not at all 2. Feeling down, depressed, or hopeless: not at all 3. Trouble falling or staying asleep, or sleeping too much: not at all 4. Feeling tired or having little energy: not at all 5. Poor appetite or overeating: not at all 6. Feeling bad about yourself - or that you are a failure or have let yourself or your family down: not at all 7. Trouble concentrating on things, such as reading the newspaper or watching television: not at all 8. Moving or speaking so slowly that other people could have noticed. Or the op posite - being so fidgety or restless that you have been moving around a lot more than usual: not at all 9. Thoughts that you would be better off or of hurting yourself in some way: not at all Total score: 0 Depression Screening Interpretation: Negative Depression Screening Done: Yes Source: Developed by Drs. Smith Bolden, Lita Reagan, Vitaliy Ba and colleagues, with an educational nj from [employer]. Thrive Questionnaire Date Thrive assessed: 09/20/24 I am a: Patient What is your living situation today?: I have a steady place to live Within the past 12 months, did the food you bought not last and you didn't have the money to get more?: Never true Within the past 12 months, did you worry whether your food would run out before you got money to buy more?: Never true Do you have trouble paying for medicines?: I choose not to answer this question Do you have trouble getting transportation to medical appointments?: No Do you have trouble paying your heating and electricity bill?: No Do you have trouble taking care of your child, family member or friend?: No Do you have trouble with day-to-day activities such as bathing, preparing meals, shopping, managing finances, etc.?: No Are you currently unemployed and looking for a job?: No Are you interested in more education?: No Please select the resources that you would like help with: None Currently or been in a relationship where the following occur: No concerns reported THRIVE Score: 0 AUDIT C Alcohol Use Questionnaire (AUDIT-C) 1. How often do you have a drink containing alcohol?: Never 3. How often do you have six or more drinks on one occasion?: Never Total Score: 0 ERIC-7 AMB Questionnaire ERIC-7 Date ERIC - 7 assessed: 09/20/24 Feeling nervous, anxious, or on edge: 0 = Not at all Not being able to stop or control worryin = Not at all Worrying too much about different things: 0 = Not at all Trouble relaxin = Not at all Being so restless that it is hard to sit still: 0 = Not at all Becoming easily annoyed or irritable: 0 = Not at all Feeling afraid as if something awful might happen: 0 = Not at all Total ERIC-7 score (0-4 normal; 5-9 mild; 10-14 moderate; 15-21 severe): 0 Source: Developed by Drs. Smith Bolden, Lita Reagan, Vitaliy Ba and colleagues, with an educational nj from [employer]. Review of Systems Const Details: Positives besides what was mentioned in HPI are in BOLD Constitutional: No Weight Change, No Fever, No Chills, No Night Sweats, No Fatigue, No Malaise ENT/Mouth: No Hearing Changes, No Ear Pain, No Nasal Congestion, No Sinus Pain, No Hoarseness, No sore throat, No Rhinorrhea, No Swallowing Difficulty Eyes: No Eye Pain, No Swelling, No Redness, No Foreign Body, No Discharge, No Vision Changes Cardiovascular: No Chest Pain, No SOB, No PND, No Dyspnea on Exertion, No Orthopnea, No Claudication, No Edema, No Palpitations Respiratory: No Cough, No Sputum, No Wheezing, No Smoke Exposure, No Dyspnea Gastrointestinal: No Nausea, No Vomiting, No Diarrhea, No Constipation, No Pain, No Heartburn, No Anorexia, No Dysphagia, No Hematochezia, No Melena, No Flatulence, No Jaundice Genitourinary: No Dysmenorrhea, No DUB, No Dyspareunia, No Dysuria, No Urinary Frequency, No Hematuria, No Urinary Incontinence, No Urgency, No Flank Pain, No Urinary Flow Changes, No Hesitancy Musculoskeletal: No Arthralgias, No Myalgias, No Joint Swelling, No Joint Stiffness, No Back Pain, No Neck Pain, No Injury History Skin: No Skin Lesions, No Pruritis, No Hair Changes, No Breast/Skin Changes, No Nipple Discharge Neuro: No Weakness, No Numbness, No Paresthesias, No Loss of Consciousness, No Syncope, No Dizziness, No Headache, No Coordination Changes, No Recent Falls Psych: No Anxiety/Panic, No Depression, No Insomnia, No Personality Changes, No Delusions, No Rumination, No SI/HI/AH/VH, No Social Issues, No Memory Changes, No Violence/Abuse Hx., No Eating Concerns Heme/Lymph: No Bruising, No Bleeding, No Transfusions History, No Lymphadenopathy Endocrine: No Polyuria, No Polydipsia, No Temperature Intolerance Physical exam (Primary Care) Vital Signs: Last Vital Signs Temp 97.3 F 12/14/24 11:15 Pulse 79 12/14/24 11:15 BP 132/92 H 12/14/24 11:15 Pulse Ox 97 12/14/24 11:15 Oxygen Delivery Method Room Air 12/14/24 11:15 BMI result Body Mass Index 43.4 Tobacco/Smoking Status: Tobacco use Status Tobacco use date assessed 12/14/24 12/14/24 11:22 Patient Tobacco Use Status Never used Tobacco 12/14/24 11:22 Tobacco use type 12/13/24 13:03 e-Cigarette/Vaping Use Never Used 12/14/24 11:22 PHQ-9: PHQ-9 Score PHQ-9: Total score 0 12/14/24 11:22 Depression Screening Interpretation: Negative Thrive Assessment: Date of Thrive Assessment Date Thrive assessed 09/20/24 12/14/24 11:22 Currently or been in a relationship where the following occur: No concerns reported Const Other: Pertinent findings are in BOLD GENERAL APPEARANCE NAD, activity normal for age, well developed/ well nourished, no cyanosis, pallor, or diaphoresis. EYES lids/conjunctiva normal. EARS/NOSE/THROAT Mucous membranes moist, nares normal, lips/teeth normal uvula midline without oral pharyngeal erythema, exudate or swelling TMs normal bilaterally. No lymphangitis/lymphedema. HEAD/NECK normocephalic atraumatic, no facial trauma, neck is supple. RESPIRATORY respiratory effort normal, speaks in full sentences, no tripod position, no accessory muscle use. Lungs clear to auscultation without rhonchi, wheezes, rales CARDIAC Regular rate and rhythm, no edema. ABDOMINAL Soft, ND/NT. No evidence of fluid wave. No pulsatile masses on exam, rebound tenderness, Thompson sign or pain over Mcburney's point. MUSCLES/EXTREMITIES No abnormal range of motion, no swelling. Swelling in left upper chest. Lump non moveable. SKIN Warm, pink and dry. No rashes, dermatoses, petechiae or lesions. NEUROLOGICAL Speech is clear and appropriate. Normal level of consciousness. Gait and coordination are normal. 5/5 strength in all extremities. PSYCH Normal mood and affect. Judgement/competence is appropriate Coding Level of Care Code Est Pt Level 3 (18090) Diagnoses Lump in chest R22.2 Assessment & Plan Assessment & Plan (1) Lump in chest: Code(s): R22.2 - Localized swelling, mass and lump, trunk Category: Medical Plan: - A CT scan with contrast is planned to exclude any underlying pathology. - If the CT scan is normal, topical Voltaren gel may be used for relief. Plan I discussed with the patient the plan to perform a CT scan with contrast to investigate the musculoskeletal pain further. If the scan is clear, we will consider using Voltaren gel for symptomatic relief. We also talked about the importance of monitoring her blood glucose levels due to her prediabetic status. Follow-up will be scheduled after the CT scan to review the results and adjust the management plan accordingly. Orders: Orders CT chest w IV con Today R22.2 - Localized swelling, mass and lump, trunk Medications: New diclofenac sodium 1% (Voltaren Arthritis Pain) apply to single elbow, wrist or hand; for hand includes palm/fingers/back of hand 2 grams topical QID 50 grams 0RF
--- OUTSIDE RECORDS SUMMARY | 2024-12-14 12:25 | XMS_ITS | Clinical Summary ---
Author Organization Formerly [facility] Address [address] [place] [id number] Phone Care Team Providers Care Communication Arts Lecturer Name Role Phone Joel Urrutia DO Primary Care Provider [phone] Allergies No known active allergies Medications ATORVASTATIN CALCIUM (ATORVASTATIN ORAL) Active HYDROCHLOROTHIAZID E ORAL Active Active Problems No known active problems Social History Tobacco Use Types Packs/Day Years Used Date Smoking Tobacco: Never Smokeless Tobacco: Never Alcohol Use Standard Drinks/Week Comments No 0 (1 standard drink = 0.6 oz pur e alcohol) Comments Unknown Sex and Gender Information Value Date Recorded Sex Assigned at Female 04/10/2017 1:36 PM EST Legal Sex Female 9:58 PM EDT Gender Identity Not on file Sexual Orientation Not on file Last Filed Vital Signs Vital Sign Reading Time Taken Comments Blood Pressure 142/78 03/22/2017 6:03 PM EST Pulse 72 03/22/2017 6:03 PM EST Temperature 37 C (98.6 F) 03/22/2017 6:03 PM EST Respiratory Rate 19 03/22/2017 6:03 PM EST Oxygen Saturation 97% 03/22/2017 3:54 PM EST Inhaled Oxygen Concentration - - Weight 72.6 kg (160 lb) 03/22/2017 12:50 PM EST Height 167.6 cm (5' 6 ) 03/22/2017 12:50 PM EST Body Mass Index 25.82 03/22/2017 12:50 PM EST Plan of Treatment Not on file Medical Devices Not on file Insurance [facility] HMO POS HMO POS HMO POS HMO POS HMO POS HMO POS HMO POS Care Teams Communication Arts Lecturer Relationship Specialty Start Date End Date Joel Urrutia DO PCP - General 12/27/16 Additional Source Comments The information contained in this document represents components of the legal health record. It is not the complete legal health record.[facility]
--- OUTSIDE RECORDS SUMMARY | 2024-12-14 12:25 | XMS_ITS | Patient Health Record ---
[facility] Organization [facility] Address [address] [place] [id number] Care Team Providers Care Airline Managerial Supervisor Name Role Phone Claus Jacinto Jr Reason For Referral No Information Plan Of Treatment No Information
== END 2024-12-14 11:36 | disposition home or self-care (01) ==
LOC: HO.HMCH 11:10
PROVIDERS: PCP Physician Assistant; Visit Provider Internal Medicine
DX: R22.2 Localized swelling, mass and lump, trunk (principal)

== ENCOUNTER → 2024-12-14 11:09 | Outpatient (BNVA) | payer MEDICARE, SELFPAY | PROVIDERS: PCP Physician Assistant; Visit Provider Internal Medicine | DX: R22.2 Localized swelling, mass and lump, trunk (principal) | CPT/HCPCS: 99212 ==

== ENCOUNTER 2025-01-28 08:32 | Outpatient (REF) | payer MEDICARE, SELFPAY ==
[2025-01-28 10:32] LABS: Hematocrit 41.7 % (37.0-47.0); Hemoglobin 13.2 g/dl (12.0-16.0); Mean Corpuscular HGB Conc 31.7 g/dl (31.0-35.0); Mean Corpuscular Hemoglobin 27.0 pg (27.0-33.0); Mean Corpuscular Volume 85.5 fL (80.0-98.0); NRBC Abs Auto 0.000 X10*3/uL (0.0-0.012); NRBC Pct Auto 0.0 /100WBC (0.0-0.2); Platelet Count 302 X10*3/uL (160-400); Red Blood Count 4.88 X10*6/uL (4.20-5.50); White Blood Count 10.0 X10*3/uL (4.8-10.8)
[2025-01-28 11:00] LABS: Alanine Aminotransferase 16 U/L (0-31); Albumin Level 4.1 g/dL (3.5-5.0); Alkaline Phosphatase 68 U/L (39-117); Anion Gap 11 (12-20); Aspartate Amino Transferase 20 U/L (5-31); Blood Urea Nitrogen 15 mg/dL (9-16); Calcium 9.3 mg/dL (8.4-10.2); Carbon Dioxide 30 mmol/L (22-29); Chloride 104 mmol/L (96-108); Cholesterol 161 mg/dL (<200); Estimated Glomerular Filt Rate > 60; HDL Cholesterol 41 mg/dL (>40); Potassium 3.8 mmol/L (3.3-5.1); Sodium 141 mmol/L (135-145); Total Protein 6.8 g/dL (6.5-8.0); Triglycerides 192 mg/dL (<150)
== END 2025-01-28 08:33 | disposition home or self-care (01) ==
LOC: HO.HMGCLDS 08:32
PROVIDERS: PCP Physician Assistant; Visit Provider Physician Assistant
DX: I10 Essential (primary) hypertension (principal); E78.2 Mixed hyperlipidemia; R73.01 Impaired fasting glucose
CPT/HCPCS: 36415; 80053; 80061; 83036; 85027

== ENCOUNTER 2025-02-21 13:29 | Outpatient (REF) | payer MEDICARE, SELFPAY ==
--- NOTE | ~2025-02-21 | CT_ITS ---
EXAMINATION: CT CHEST WITH CONTRAST CLINICAL INFORMATION: R 22.2. Localized swelling, mass and lump, trunk COMPARISON: None available. TECHNIQUE: Multidetector volumetric CT imaging of the chest was obtained after the administration of 65 mL of Omnipaque 350 intravenous contrast without immediate adverse reactions. Axial MIP volume rendering provided. Sagittal and coronal reformatted images were obtained. This CT examination was performed using dose optimization techniques as appropriate, variously including the following: *Automated exposure control *Adjustment of mA and/or kV according to patient size (this includes techniques or standardized protocols for targeted exams where dose is matched to indication/reason for exam; i.e. extremities or head) *Use of iterative reconstruction technique. DLP: 244 mGy-cm FINDINGS: [employer]FERENCE [employer] HEAD: Patient's large body habitus. Satisfactory inspiration. Multilevel spondylosis. Vascular clips right upper quadrant abdomen. Upper extremities at the size of the head. LUNGS: No consolidation. No bronchiectasis. Honeycombing. Subsegmental atelectasis, lung bases. No gross pulmonary nodules. Respiratory airways patent.. MEDIASTINUM: No mediastinal or perihilar lymphadenopathy. No aneurysm or dissection, thoracic aorta. Calcified plaque thoracic aorta wall and coronary arteries. No pericardial effusion. Heart is not enlarged. There is a 2 cm heterogeneous mixed solid and cystic lesion left thyroid lobe. Small hiatal hernia. PLEURA: No pleural effusion. No pneumothorax. No calcified pleural plaques. No hemothorax. AXILLA: Prominent axillary lymph nodes. UPPER ABDOMEN: Nodular surface of the liver. Liver is enlarged. Status post cholecystectomy. No gross ascites. No gross hydronephrosis in either kidney. Subcentimeter hypodensity in the uncinate process of the pancreas. Reduced volume of the pancreatic parenchyma. Nonspecific prominent mesenteric and retroperitoneal lymph nodes. OSSEOUS STRUCTURES: Multilevel spondylosis throughout the axial skeleton without acute fracture or gross listhesis. No acute rib fracture CT/CT chest w IV con IMPRESSION: No acute airspace disease. 2 cm heterogeneous dominant nodule, left thyroid lobe. Coronary artery disease and atherosclerosis disease. Hepatomegaly. Fleischner guidelines were followed. Electronically signed by: Sawyer Felton MD 02/21/2025 02:45 PM [facility]
[2025-02-21] MEDS: iohexoL 350 MG/ML 100 ML INFUS..BTL 65 ML IV (14:34)
--- OUTSIDE RECORDS SUMMARY | 2025-02-21 20:37 | XMS_ITS | Clinical Summary ---
Author Organization [facility] Address [address] [place] [phone] Phone Care Team Providers Care Human Performance Professor Name Role Phone Joel Urrutia DO Primary Care Provider [phone] Allergies No known active allergies Medications ATORVASTATIN [...] file Medical Devices Not on file Insurance [facility] HMO POS HMO POS HMO POS HMO POS HMO POS HMO POS HMO POS Care Teams Human Performance Professor Relationship Specialty Start Date End Date Joel Urrutia DO PCP - General 12/27/16 Additional Source Comments The information contained in this document represents components of the legal health record. It is not the complete legal health record.[facility]
== END 2025-02-21 13:30 ==
LOC: HO.CT 13:29
PROVIDERS: PCP Physician Assistant; Visit Provider Internal Medicine
DX: R22.2 Localized swelling, mass and lump, trunk (principal)
CPT/HCPCS: 71260; Q9967

== ENCOUNTER → 2025-02-21 13:30 | Outpatient (BNV) | payer MEDICARE, SELFPAY | PROVIDERS: PCP Physician Assistant; Visit Provider Radiology Diagnostic Radiology | DX: R22.2 Localized swelling, mass and lump, trunk (principal); R16.0 Hepatomegaly, not elsewhere classified; I25.10 Atherosclerotic heart disease of native coronary artery without angina pectoris | CPT/HCPCS: 71260 ==